=== PATIENT | male | born 1985 | race Two or more races ===

== ENCOUNTER 2020-09-09 17:44 | Emergency (ER) | payer OTHER ==
[2020-09-09 19:00] LABS: BASO % 1.3 % (0-2.0); EOS % 0.6 % (0-4.5); HEMATOCRIT 37.1 % (35.4-49); HEMOGLOBIN 12.7 GM/dL (11.7-16.9); LYMPH % 31.9 % (8-40); MCH 29.1 pg (25.7-33.7); MCHC 34.3 g/dl (32.0-35.9); MEAN CELL VOLUME 84.6 fl (80-96); MEAN PLT VOLUME 8.2 fl (7.5-11.1); MONO % 7.1 % (3.8-10.2); NEUT % 59.1 % (42.8-82.8); PLATELET COUNT 313 K/MM3 (134-434); RBC 4.38 M/mm3 (4.00-5.60); RDW 16.4 % (11.9-15.9); WHITE BLOOD COUNT 9.2 K/mm3 (4.0-10.0)
[2020-09-09 19:17] LABS: INR 0.92 (0.83-1.09); PROTHROMBIN TIME (PATIENT) 11.2 SEC (9.7-13.0)
[2020-09-09 19:19] LABS: ACTIVATED PTT 32.8 SECONDS (25.2-36.5)
[2020-09-09 19:24] LABS: CHLORIDE 95 mmol/L (98-107); SODIUM 131 mmol/L (136-145)
[2020-09-09 19:25] LABS: ALBUMIN 3.5 g/dl (3.4-5.0); ANION GAP 9 MMOL/L (8-16); BLOOD UREA NITROGEN 16.9 mg/dL (7-18); CALCIUM 9.2 mg/dL (8.5-10.1); CO2 27 mmol/L (21-32); GLUCOSE,RANDOM 244 mg/dL (74-106)
[2020-09-09 19:28] LABS: SGOT/AST 22 U/L (15-37); SGPT/ALT 14 U/L (13-61)
[2020-09-09 19:30] LABS: BILIRUBIN,TOTAL 0.3 mg/dL (0.2-1); TOT PROT 7.4 g/dl (6.4-8.2)
[2020-09-09 19:32] LABS: ALK PHOS 89 U/L (45-117)
[2020-09-09] MEDS ORDERED: NITROGLYCERIN SUBLINGUAL 1/150 0.4 MG TAB SL ONE (19:59)
[2020-09-09] MEDS ORDERED: ASPIRIN 81 MG CHEWABLE TABLETS PO ONE (19:59)
[2020-09-09] MEDS ORDERED: ACETAMINOPHEN 325 MG TABLET (FP) PO ONE (20:00)
[2020-09-09] MEDS ORDERED: ASPIRIN COATED 81 MG TABLET.EC ONE (20:19)
[2020-09-09] MEDS ORDERED: ACETAMINOPHEN 325 MG TABLET (FP) ONE (20:20)
[2020-09-09] MEDS ORDERED: NITROGLYCERIN SUBLINGUAL 1/150 0.4 MG TAB ONE (20:20)
[2020-09-10] MEDS ORDERED: INSULIN (NOVOLOG MIX 70/30) 100 UNITS/ML MDV SQ SCH (07:00)
[2020-09-10] MEDS: LEVOTHYROXINE NA 88 MCG TABLET (FP) PO SCH (07:10)
[2020-09-10 07:31] LABS: HEMATOCRIT 37.9 % (35.4-49); MCHC 34.3 g/dl (32.0-35.9); MEAN CELL VOLUME 84.5 fl (80-96); PLATELET COUNT 291 K/MM3 (134-434); RBC 4.48 M/mm3 (4.00-5.60); RDW 16.1 % (11.9-15.9); WHITE BLOOD COUNT 7.5 K/mm3 (4.0-10.0)
[2020-09-10 07:45] LABS: CHLORIDE 99 mmol/L (98-107); SODIUM 135 mmol/L (136-145)
[2020-09-10 07:50] LABS: ANION GAP 7 MMOL/L (8-16); BLOOD UREA NITROGEN 19.8 mg/dL (7-18); CALCIUM 9.1 mg/dL (8.5-10.1); CO2 30 mmol/L (21-32); GLUCOSE,RANDOM 258 mg/dL (74-106)
[2020-09-10 07:54] LABS: PHOSPHOROUS 4.6 mg/dL (2.5-4.9)
[2020-09-10] MEDS ORDERED: INSULIN (LEVEMIR) 100 UNITS/ML UNITS SQ SCH ×2 (10:00→22:00)
[2020-09-10] MEDS ORDERED: DIVALPROEX SODIUM 500 MG TABLET E.C. PO SCH ×2 (10:00→22:00)
[2020-09-10] MEDS: ENOXAPARIN NA (PORCINE) 40 MG/0.4 ML DISP.SYRIN SQ SCH (10:15)
[2020-09-10] MEDS ORDERED: ASPIRIN 81 MG CHEWABLE TABLETS ONE (10:17)
[2020-09-10] MEDS ORDERED: LISINOPRIL 5 MG TABLET ONE (10:18)
[2020-09-10] MEDS ORDERED: ENOXAPARIN NA (PORCINE) 40 MG/0.4 ML DISP.SYRIN SQ ONE (10:18)
[2020-09-10] MEDS ORDERED: metoPROLOL SUCCINATE 25 MG TAB.SR.24H (FP) ONE (10:19)
[2020-09-10] MEDS: metoPROLOL SUCCINATE 25 MG TAB.SR.24H (FP) PO SCH (10:20)
[2020-09-10] MEDS: ASPIRIN COATED 81 MG TABLET.EC PO SCH (10:20)
[2020-09-10] MEDS: LISINOPRIL 5 MG TABLET PO SCH (10:20)
[2020-09-10] MEDS ORDERED: DIVALPROEX SODIUM 500 MG TABLET E.C. ONE (10:32)
[2020-09-10] MEDS ORDERED: SERTRALINE HCL 50 MG TABLET (FP) PO SCH (11:00)
[2020-09-10] MEDS: INSULIN SLIDING SCALE (NOVOLOG) 1 VIAL SQ SCH ×2 (11:18→17:47)
[2020-09-10] MEDS: GEMFIBROZIL 600 MG TABLET (FP) PO SCH (17:20)
[2020-09-10] MEDS ORDERED: ATORVASTATIN CA 40 MG TABLET (FP) PO SCH (22:00)
[2020-09-10] MEDS ORDERED: DESMOPRESSIN ACETATE 0.2 MG TABLET PO SCH (22:00)
[2020-09-10] MEDS ORDERED: cloNIDine HCL 0.1 MG TABLET PO SCH (22:00)
[2020-09-10] MEDS ORDERED: risperiDONE 1 MG TABLET PO SCH (22:00)
[2020-09-10] MEDS ORDERED: LURASIDONE HCL 120 MG PO SCH (22:00)
[2020-09-10] MEDS ORDERED: risperiDONE 2 MG TABLET PO SCH (22:00)
[2020-09-10] MEDS ORDERED: ATORVASTATIN CA 40 MG TABLET (FP) ONE (22:28)
[2020-09-10] MEDS ORDERED: cloNIDine HCL 0.1 MG TABLET ONE (22:28)
[2020-09-11 00:46] VITALS: BMI 32.4
[2020-09-11] MEDS: INSULIN SLIDING SCALE (NOVOLOG) 1 VIAL SQ SCH ×3 (06:53→17:53)
[2020-09-11] MEDS: GEMFIBROZIL 600 MG TABLET (FP) PO SCH ×2 (06:54→17:53)
[2020-09-11] MEDS: LEVOTHYROXINE NA 88 MCG TABLET (FP) PO SCH (06:54)
[2020-09-11] MEDS ORDERED: INSULIN (LEVEMIR) 100 UNITS/ML UNITS SQ SCH (07:00)
[2020-09-11 07:49] LABS: CHOLESTEROL 148 mg/dL (50-200); TRIGLYCERIDES 412 mg/dL (0-150)
[2020-09-11 07:50] LABS: LDL CHOLESTEROL (ONLY SJRH) 76 mg/dL (5-100)
[2020-09-11 07:52] LABS: HDL CHOLESTEROL 25 mg/dL (40-60)
[2020-09-11] MEDS ORDERED: PT OWN MED DRAWER 7, Y5N ONE ×2 (09:52→17:48)
[2020-09-11] MEDS: LISINOPRIL 5 MG TABLET PO SCH (09:54)
[2020-09-11] MEDS ORDERED: DIVALPROEX SODIUM 500 MG TABLET E.C. PO SCH (10:00)
[2020-09-11] MEDS ORDERED: PATIENT'S OWN MEDICATION (NON-FORMULARY) (Mirabegron [Myrbetriq] 25 MG Tab.Er.24h) PO SCH (10:00)
[2020-09-11 12:03] VITALS: PULSE 96
[2020-09-11] MEDS ORDERED: PATIENT'S OWN MEDICATION (NON-FORMULARY) (Sertraline Hcl [Sertraline Hcl] 100 MG Tablet) PO SCH (13:00)
[2020-09-11] MEDS ORDERED: SERTRALINE HCL 200 MG PO SCH (13:03)
[2020-09-11] MEDS: ASPIRIN COATED 81 MG TABLET.EC PO SCH (14:14)
[2020-09-11] MEDS: ENOXAPARIN NA (PORCINE) 40 MG/0.4 ML DISP.SYRIN SQ SCH (14:14)
[2020-09-11] MEDS: metoPROLOL SUCCINATE 25 MG TAB.SR.24H (FP) PO SCH (14:14)
[2020-09-11 15:08] VITALS: BP 113/69; TEMP 98.2
== END 2020-09-11 19:51 ==
LOC: JER 17:44 → JERBED 20:04 → J4W 09-11 00:04
PROVIDERS: ADMIT Internal Medicine; ATTEND Internal Medicine
PROC: 3E023GC Introduction of Other Therapeutic Substance into Muscle, Percutaneous Approach (ICD-10-PCS; principal; 2020-09-10)
PROC: 3E033GC Introduction of Other Therapeutic Substance into Peripheral Vein, Percutaneous Approach (ICD-10-PCS; 2020-09-11)
DX: R07.9 Chest pain, unspecified (principal)
CPT/HCPCS: 36415; 71045-TC-FY; 71275-TC; 80048; 80053; 80061; 82550; 82553; 82962; 83036; 83721; 84100; 84484; 85025; 85027; 85379; 85610; 85730; 93005; 93010; 93306-TC; 93351; 96374; 99285-25; C9803; G0378; J0735; J2794; Q9967; U0003

== ENCOUNTER 2020-10-08 21:44 | Emergency (ER) | payer OTHER ==
[2020-10-08 22:01] VITALS: TEMP 98.5; BMI 48.4
[2020-10-08] MEDS ORDERED: FAMOTIDINE 10 MG TABLET PO ONE (22:05)
[2020-10-08] MEDS ORDERED: MAG HYDROX/AL HYDROX/SIMETH -MYLANTA- ORAL SUSPENSION PO ONE (22:05)
[2020-10-08] MEDS ORDERED: ASPIRIN 81 MG CHEWABLE TABLETS PO ONE (22:08)
[2020-10-08] MEDS ORDERED: ASPIRIN 81 MG CHEWABLE TABLETS ONE (22:36)
[2020-10-08] MEDS ORDERED: FAMOTIDINE 10 MG TABLET ONE (22:36)
[2020-10-08] MEDS ORDERED: MAG HYDROX/AL HYDROX/SIMETH 30 ML UNIT-DOSE CUP ONE (22:37)
[2020-10-08 22:59] LABS: BASO % 1.2 % (0-2.0); EOS % 0.9 % (0-4.5); HEMATOCRIT 39.2 % (35.4-49); HEMOGLOBIN 13.9 GM/dL (11.7-16.9); MCH 30.1 pg (25.7-33.7); MCHC 35.5 g/dl (32.0-35.9); MEAN CELL VOLUME 84.9 fl (80-96); NEUT % 58.9 % (42.8-82.8); PLATELET COUNT 279 K/MM3 (134-434); RBC 4.62 M/mm3 (4.00-5.60); RDW 17.5 % (11.9-15.9); WHITE BLOOD COUNT 9.8 K/mm3 (4.0-10.0)
[2020-10-08 23:27] LABS: CHLORIDE 97 mmol/L (98-107); POTASSIUM 4.1 mmol/L (3.5-5.1); SODIUM 134 mmol/L (136-145)
[2020-10-08 23:29] LABS: ANION GAP 12 MMOL/L (8-16); CO2 25 mmol/L (21-32); GLUCOSE,RANDOM 267 mg/dL (74-106)
[2020-10-09 00:19] LABS: BLOOD UREA NITROGEN 27.8 mg/dL (7-18); CALCIUM 8.5 mg/dL (8.5-10.1)
[2020-10-09] MEDS ORDERED: ACETAMINOPHEN 325 MG TABLET (FP) PO ONE (01:21)
[2020-10-09] MEDS ORDERED: ACETAMINOPHEN 325 MG TABLET (FP) ONE (01:26)
[2020-10-09 01:51] VITALS: BP 113/76; PULSE 90
== END 2020-10-09 02:07 | disposition home or self-care (01) ==
LOC: JER 21:44
DX: R07.9 Chest pain, unspecified (principal); E11.69 Type 2 diabetes mellitus with other specified complication; I25.119 Atherosclerotic heart disease of native coronary artery with unspecified angina pectoris
CPT/HCPCS: 36415; 71045-TC-FY; 80048; 82550; 82553; 84484; 85025; 93005; 93010; 99284-25

== ENCOUNTER 2021-02-25 21:55 | Observation (INO) | payer OTHER ==
[2021-02-25] MEDS ORDERED: ASPIRIN 325 MG TABLET PO ONE (22:14)
[2021-02-25] MEDS ORDERED: ASPIRIN 325 MG ENTERIC COATED TABLET (FP) ONE (22:39)
[2021-02-25 22:47] LABS: BASO % 1.3 % (0-2.0); EOS % 0.7 % (0-4.5); HEMATOCRIT 38.7 % (35.4-49); HEMOGLOBIN 13.8 GM/dL (11.7-16.9); LYMPH % 30.9 % (8-40); MCH 29.4 pg (25.7-33.7); MCHC 35.6 g/dl (32.0-35.9); MEAN CELL VOLUME 82.5 fl (80-96); MEAN PLT VOLUME 8.1 fl (7.5-11.1); MONO % 6.7 % (3.8-10.2); NEUT % 60.4 % (42.8-82.8); PLATELET COUNT 240 K/MM3 (134-434); RDW 16.5 % (11.9-15.9); WHITE BLOOD COUNT 9.1 K/mm3 (4.0-10.0)
[2021-02-25 22:54] LABS: INR 0.84 (0.83-1.09); PROTHROMBIN TIME (PATIENT) 10.4 SEC (9.7-13.0)
[2021-02-25 23:08] LABS: CALCIUM 8.8 mg/dL (8.5-10.1)
[2021-02-25 23:09] LABS: ALBUMIN 3.6 g/dl (3.4-5.0)
[2021-02-25 23:13] LABS: BILIRUBIN,TOTAL 0.5 mg/dL (0.2-1)
[2021-02-25 23:21] LABS: TOT PROT 7.2 g/dl (6.4-8.2)
[2021-02-26] MEDS ORDERED: ACETAMINOPHEN 325 MG TABLET (FP) PO PRN (01:04)
[2021-02-26] MEDS ORDERED: SODIUM CHLORIDE 1,000 ML IV SCH (01:15)
[2021-02-26 06:04] LABS: BASO % 1.1 % (0-2.0); HEMATOCRIT 40.6 % (35.4-49); HEMOGLOBIN 13.4 GM/dL (11.7-16.9); LYMPH % 40.5 % (8-40); MCH 27.6 pg (25.7-33.7); MEAN CELL VOLUME 83.5 fl (80-96); MEAN PLT VOLUME 8.1 fl (7.5-11.1); MONO % 5.9 % (3.8-10.2); NEUT % 51.5 % (42.8-82.8); PLATELET COUNT 212 K/MM3 (134-434); RBC 4.86 M/mm3 (4.00-5.60); RDW 16.2 % (11.9-15.9); WHITE BLOOD COUNT 7.6 K/mm3 (4.0-10.0)
[2021-02-26 06:28] LABS: CHLORIDE 99 mmol/L (98-107); SODIUM 135 mmol/L (136-145)
[2021-02-26 06:31] LABS: ALBUMIN 3.6 g/dl (3.4-5.0); ANION GAP 8 MMOL/L (8-16); CO2 27 mmol/L (21-32); GLUCOSE,RANDOM 181 mg/dL (74-106); MAGNESIUM 2.2 mg/dL (1.8-2.4)
[2021-02-26 06:32] LABS: BLOOD UREA NITROGEN 16.7 mg/dL (7-18)
[2021-02-26 06:34] LABS: CHOLESTEROL 166 mg/dL (50-200); CREATININE 0.8 mg/dL (0.55-1.3); SGOT/AST 19 U/L (15-37); SGPT/ALT 19 U/L (13-61)
[2021-02-26 06:35] LABS: LDL CHOLESTEROL (ONLY SJRH) 72 mg/dL (5-100); PHOSPHOROUS 4.5 mg/dL (2.5-4.9); TRIGLYCERIDES 554 mg/dL (0-150)
[2021-02-26 06:36] LABS: BILIRUBIN,TOTAL 0.4 mg/dL (0.2-1); TOT PROT 7.3 g/dl (6.4-8.2)
[2021-02-26 06:37] LABS: ALK PHOS 69 U/L (45-117); HDL CHOLESTEROL 26 mg/dL (40-60)
[2021-02-26] MEDS ORDERED: LISINOPRIL 5 MG TABLET ONE (08:35)
[2021-02-26] MEDS ORDERED: metoPROLOL SUCCINATE 25 MG TAB.SR.24H (FP) ONE (08:35)
[2021-02-26] MEDS ORDERED: ENOXAPARIN NA (PORCINE) 40 MG/0.4 ML DISP.SYRIN SQ ONE (08:36)
[2021-02-26] MEDS: metoPROLOL SUCCINATE 25 MG TAB.SR.24H (FP) PO SCH (09:30)
[2021-02-26] MEDS ORDERED: LISINOPRIL 5 MG TABLET PO SCH (10:00)
[2021-02-26] MEDS: DIVALPROEX NA *ER* EXTEND REL 500 MG TABLET.SA (FP) PO SCH (11:00)
[2021-02-26] MEDS: ENOXAPARIN NA (PORCINE) 40 MG/0.4 ML DISP.SYRIN SQ SCH (11:00)
[2021-02-26] MEDS: LEVOTHYROXINE NA 88 MCG TABLET (FP) PO SCH (11:00)
[2021-02-26] MEDS: INSULIN SLIDING SCALE (NOVOLOG) 1 VIAL SQ SCH ×4 (11:01→22:23)
[2021-02-26] MEDS: SERTRALINE HCL 50 MG TABLET (FP) PO SCH (11:35)
[2021-02-26 16:05] VITALS: BMI 47.0
[2021-02-26] MEDS ORDERED: INSULIN (NOVOLOG) ASPART 100 UNITS/ML 10ML VIAL ONE (17:10)
[2021-02-26] MEDS ORDERED: PT OWN MED DRAWER 7, Y5N ONE (21:11)
[2021-02-26] MEDS ORDERED: ATORVASTATIN CA 40 MG TABLET (FP) PO SCH (22:00)
[2021-02-26] MEDS ORDERED: DIVALPROEX NA *ER* EXTEND REL 500 MG TABLET.SA (FP) PO SCH (22:00)
[2021-02-27] MEDS: INSULIN SLIDING SCALE (NOVOLOG) 1 VIAL SQ SCH (06:26)
[2021-02-27] MEDS: LEVOTHYROXINE NA 88 MCG TABLET (FP) PO SCH (06:33)
[2021-02-27 08:12] LABS: HEMATOCRIT 41.8 % (35.4-49); HEMOGLOBIN 13.9 GM/dL (11.7-16.9); MCH 27.8 pg (25.7-33.7); MCHC 33.2 g/dl (32.0-35.9); MEAN CELL VOLUME 83.9 fl (80-96); MEAN PLT VOLUME 8.5 fl (7.5-11.1); PLATELET COUNT 225 10^3/uL (134-434); RBC 4.99 M/mm3 (4.00-5.60); RDW 16.8 % (11.9-15.9); WHITE BLOOD COUNT 7.3 K/mm3 (4.0-10.0)
[2021-02-27 08:32] LABS: BLOOD UREA NITROGEN 18.1 mg/dL (7-18); CALCIUM 9.4 mg/dL (8.5-10.1)
[2021-02-27 08:33] LABS: ALBUMIN 3.6 g/dl (3.4-5.0)
[2021-02-27 08:35] LABS: CREATININE 0.7 mg/dL (0.55-1.3)
[2021-02-27 08:36] LABS: BILIRUBIN,TOTAL 0.5 mg/dL (0.2-1)
[2021-02-27 08:37] LABS: TOT PROT 7.4 g/dl (6.4-8.2)
[2021-02-27] MEDS ORDERED: PT OWN MED DRAWER 7, Y5N ONE (09:13)
[2021-02-27] MEDS: metoPROLOL SUCCINATE 25 MG TAB.SR.24H (FP) PO SCH (09:27)
[2021-02-27] MEDS: ENOXAPARIN NA (PORCINE) 40 MG/0.4 ML DISP.SYRIN SQ SCH ×2 (09:27→09:37)
[2021-02-27] MEDS: SERTRALINE HCL 50 MG TABLET (FP) PO SCH (09:27)
[2021-02-27] MEDS: DIVALPROEX NA *ER* EXTEND REL 500 MG TABLET.SA (FP) PO SCH (09:30)
[2021-02-27 11:30] VITALS: BP 125/53; PULSE 98; TEMP 98.1
== END 2021-02-27 11:31 | disposition home or self-care (01) ==
LOC: JER 21:55 → JERBED 23:35 → OBSVTOIN 23:35 → INTOOBSV 23:35 → UNDOADMOB 23:35 → JERBED 02-26 09:47 → J4W 02-26 15:36
PROVIDERS: ADMIT Hospitalist; ATTEND Internal Medicine
PROC: 3E013VG Introduction of Insulin into Subcutaneous Tissue, Percutaneous Approach (ICD-10-PCS; principal; 2021-02-26)
PROC: 3E0337Z Introduction of Electrolytic and Water Balance Substance into Peripheral Vein, Percutaneous Approach (ICD-10-PCS; 2021-02-26)
DX: I25.10 Atherosclerotic heart disease of native coronary artery without angina pectoris (principal); F63.81 Intermittent explosive disorder; F79 Unspecified intellectual disabilities; E86.0 Dehydration; E11.9 Type 2 diabetes mellitus without complications; Z95.5 Presence of coronary angioplasty implant and graft; I10 Essential (primary) hypertension; I25.2 Old myocardial infarction; Z87.891 Personal history of nicotine dependence; E66.01 Morbid (severe) obesity due to excess calories; Z68.42 Body mass index [BMI] 45.0-49.9, adult; E87.1 Hypo-osmolality and hyponatremia; R07.89 Other chest pain; R55 Syncope and collapse
CPT/HCPCS: 36415; 71045-TC-FY; 80053; 80061; 82550; 82553; 82962; 83036; 83721; 83735; 84100; 84484; 85025; 85027; 85610; 85730; 93005; 93010; 93306-TC; 96360; 96372; 99285-25; C9803; G0378; U0003; U0005

== ENCOUNTER 2021-04-30 18:21 | Emergency (ER) | payer OTHER ==
[2021-04-30 18:51] VITALS: BP 118/63; TEMP 97.6; BMI 45.3
[2021-04-30 20:16] VITALS: PULSE 86
== END 2021-04-30 20:22 | disposition home or self-care (01) ==
LOC: JERFT 18:21
DX: S63.616A Unspecified sprain of right little finger, initial encounter (principal); R21 Rash and other nonspecific skin eruption; W23.1XXA Caught, crushed, jammed, or pinched between stationary objects, initial encounter
CPT/HCPCS: 73130-TC-RT-FY; 99283-25

== ENCOUNTER 2021-06-02 20:28 | Emergency (ER) | payer OTHER ==
[2021-06-02 20:35] VITALS: BP 122/77; BMI 41.9
[2021-06-02] MEDS ORDERED: LACTATED RINGERS SOLUTION 1000 ML INFUS.BAG IV ONE (21:23)
[2021-06-02] MEDS ORDERED: ONDANSETRON 4 MG/2 ML VIAL IVPUSH ONE (21:23)
[2021-06-02] MEDS ORDERED: ACETAMINOPHEN 1000 MG/100 ML VIAL (NON FORMULARY) IVPB ONE (21:23)
[2021-06-02] MEDS ORDERED: ONDANSETRON 4 MG/2 ML VIAL ONE (21:43)
[2021-06-02] MEDS ORDERED: ACETAMINOPHEN INJECTION 100 ML IVPB ONE (21:43)
[2021-06-02 21:46] LABS: BASO % 1.5 % (0-2.0); EOS % 0.7 % (0-4.5); HEMATOCRIT 38.7 % (35.4-49); HEMOGLOBIN 13.8 GM/dL (11.7-16.9); LYMPH % 34.2 % (8-40); MCH 28.8 pg (25.7-33.7); MCHC 35.6 g/dl (32.0-35.9); MEAN CELL VOLUME 80.9 fl (80-96); NEUT % 56.6 % (42.8-82.8); PLATELET COUNT 247 10^3/uL (134-434); RBC 4.78 M/mm3 (4.00-5.60); RDW 16.8 % (11.9-15.9); WHITE BLOOD COUNT 10.4 K/mm3 (4.0-10.0)
[2021-06-02 21:56] LABS: INR 0.87 (0.83-1.09); PROTHROMBIN TIME (PATIENT) 10.7 SEC (9.7-13.0)
[2021-06-02 21:58] LABS: ACTIVATED PTT 29.1 SECONDS (25.2-36.5)
[2021-06-02] MEDS ORDERED: LIDOCAINE PATCH REMOVAL MC SCH (22:00)
[2021-06-02 22:08] LABS: CHLORIDE 98 mmol/L (98-107); SODIUM 134 mmol/L (136-145)
[2021-06-02 22:12] LABS: ALBUMIN 3.5 g/dl (3.4-5.0); ANION GAP 11 MMOL/L (8-16); BLOOD UREA NITROGEN 21.2 mg/dL (7-18); CALCIUM 8.5 mg/dL (8.5-10.1); CO2 25 mmol/L (21-32); GLUCOSE,RANDOM 257 mg/dL (74-106)
[2021-06-02 22:15] LABS: CREATININE 1.2 mg/dL (0.55-1.3); SGOT/AST 19 U/L (15-37)
[2021-06-02 22:16] LABS: BILIRUBIN,TOTAL 0.4 mg/dL (0.2-1)
[2021-06-02 22:18] LABS: ALK PHOS 87 U/L (45-117)
[2021-06-02] MEDS ORDERED: LIDOCAINE 5% TOPICAL PATCH TP ONE (22:33)
[2021-06-02] MEDS ORDERED: KETOROLAC TROMETHAMINE 15 MG/ML VIAL IVPUSH ONE (22:34)
[2021-06-02 22:39] LABS: SGPT/ALT 27 U/L (13-61); TOT PROT 7.5 g/dl (6.4-8.2)
[2021-06-02] MEDS ORDERED: LIDOCAINE 5% TOPICAL PATCH ONE (22:47)
[2021-06-02] MEDS ORDERED: KETOROLAC TROMETHAMINE 15 MG/ML VIAL ONE (22:48)
[2021-06-02] MEDS ORDERED: CYCLOBENZAPRINE HCL 10 MG TABLET (FP) PO ONE (23:00)
[2021-06-02] MEDS ORDERED: CYCLOBENZAPRINE HCL 10 MG TABLET (FP) ONE (23:23)
[2021-06-03 00:46] VITALS: PULSE 69; TEMP 98.6
[2021-06-03] MEDS ORDERED: CYCLOBENZAPRINE HCL 5 MG TABLET PO ONE (01:04)
[2021-06-03] MEDS ORDERED: CYCLOBENZAPRINE HCL 10 MG TABLET (FP) ONE (01:10)
== END 2021-06-03 02:01 | disposition home or self-care (01) ==
LOC: JER 20:28
PROC: 3E0333Z Introduction of Anti-inflammatory into Peripheral Vein, Percutaneous Approach (ICD-10-PCS; principal; 2021-06-02)
PROC: 3E033NZ Introduction of Analgesics, Hypnotics, Sedatives into Peripheral Vein, Percutaneous Approach (ICD-10-PCS; 2021-06-02)
DX: S16.1XXA Strain of muscle, fascia and tendon at neck level, initial encounter (principal); W19.XXXA Unspecified fall, initial encounter; Y92.9 Unspecified place or not applicable
CPT/HCPCS: 36415; 70450-TC; 71046-TC-FY; 72125-TC; 80053; 80164; 82010; 82550; 82553; 82962; 84484; 85025; 85610; 85730; 93005; 93010; 96374; 96375; 99285-25; C9803; J0131; U0003; U0005

== ENCOUNTER 2021-06-04 15:21 | Emergency (ER) | payer OTHER ==
[2021-06-04 15:25] VITALS: BP 111/58; PULSE 110; TEMP 99; BMI 45.1
== END 2021-06-04 16:46 | disposition home or self-care (01) ==
LOC: JERFT 15:21 → JER 15:21 → JERFT 16:46
DX: S13.9XXA Sprain of joints and ligaments of unspecified parts of neck, initial encounter (principal); W01.0XXA Fall on same level from slipping, tripping and stumbling without subsequent striking against object, initial encounter
CPT/HCPCS: 99281-25

== ENCOUNTER 2022-02-25 13:29 | Observation (INO) | payer OTHER ==
[2022-02-25 14:04] VITALS: BMI 45.8
[2022-02-25] MEDS ORDERED: SODIUM CHLORIDE 1,000 ML IV SCH (14:30)
[2022-02-25 15:27] LABS: BASO % 0.5 % (0-2.0); EOS % 0.7 % (0-4.5); HEMATOCRIT 45.1 % (35.4-49); HEMOGLOBIN 14.8 GM/dL (11.7-16.9); LYMPH % 34.4 % (8-40); MCH 27.3 pg (25.7-33.7); MCHC 32.9 g/dl (32.0-35.9); MEAN CELL VOLUME 83.1 fl (80-96); MEAN PLT VOLUME 8.3 fl (7.5-11.1); MONO % 6.3 % (3.8-10.2); NEUT % 58.1 % (42.8-82.8); PLATELET COUNT 263 10^3/uL (134-434); RBC 5.42 M/mm3 (4.00-5.60); RDW 15.7 % (11.9-15.9); WHITE BLOOD COUNT 7.9 K/mm3 (4.0-10.0)
[2022-02-25] MEDS ORDERED: ASPIRIN 81 MG CHEWABLE TABLETS PO ONE (15:27)
[2022-02-25] MEDS ORDERED: ASPIRIN 81 MG CHEWABLE TABLETS ONE (15:33)
[2022-02-25 15:38] LABS: INR 0.97 (0.83-1.09); PROTHROMBIN TIME (PATIENT) 11.1 SEC (9.7-13.0); VENOUS BASE EXCESS -2.1 mmol/L (-2-2); VENOUS O2 SATURATION 79.9 % (70-80); VENOUS PH 7.266 (7.310-7.410)
[2022-02-25 15:41] LABS: ACTIVATED PTT 34.7 SECONDS (25.2-36.5)
[2022-02-25] MEDS ORDERED: LORazepam 2 MG/ML SDV VIAL IVPB ONE (15:59)
[2022-02-25 16:10] LABS: CALCIUM 9.5 mg/dL (8.5-10.1)
[2022-02-25 16:16] LABS: TOT PROT 7.8 g/dl (6.4-8.2)
[2022-02-25 16:17] LABS: BILIRUBIN,TOTAL 0.4 mg/dL (0.2-1)
[2022-02-25 17:06] LABS: URINE APPEARANCE CLEAR; URINE BILIRUBIN NEGATIVE (NEGATIVE); URINE COLOR YELLOW; URINE GLUCOSE (UA) 3+ (NEGATIVE); URINE KETONE NEGATIVE (NEGATIVE); URINE LEUK ESTERASE NEGATIVE (NEGATIVE); URINE NITRITE NEGATIVE (NEGATIVE); URINE PROTEIN NEGATIVE (NEGATIVE); URINE UROBILINOGEN 0.2 mg/dL (0.2-1.0)
[2022-02-25] MEDS ORDERED: DEXTROSE 50%-WATER - 25 GM/50 ML VIAL IVPUSH PRN (18:55)
[2022-02-25] MEDS ORDERED: DIVALPROEX SODIUM 500 MG TABLET E.C. ONE (20:53)
[2022-02-25] MEDS ORDERED: ATORVASTATIN CA 40 MG TABLET (FP) ONE (20:53)
[2022-02-25] MEDS ORDERED: cloNIDine HCL 0.1 MG TABLET ONE (20:53)
[2022-02-25] MEDS: INSULIN (LEVEMIR) 100 UNITS/ML UNITS SQ SCH (21:35)
[2022-02-25] MEDS: cloNIDine HCL 0.1 MG TABLET PO SCH (21:35)
[2022-02-25] MEDS: DIVALPROEX NA *ER* EXTEND REL 500 MG TABLET.SA (FP) PO SCH (21:35)
[2022-02-25] MEDS: ATORVASTATIN CA 40 MG TABLET (FP) PO SCH (21:36)
[2022-02-25] MEDS: INSULIN SLIDING SCALE (NOVOLOG) 1 VIAL SQ SCH (21:40)
[2022-02-25] MEDS: DESMOPRESSIN ACETATE 0.2 MG TABLET PO SCH (22:17)
[2022-02-26] MEDS ORDERED: ACETAMINOPHEN 1000 MG/100 ML BAG IVPB ONE ×2 (05:28→17:30)
[2022-02-26] MEDS ORDERED: ACETAMINOPHEN INJECTION 100 ML IVPB ONE (05:42)
[2022-02-26] MEDS ORDERED: DIVALPROEX SODIUM 500 MG TABLET E.C. ONE (08:16)
[2022-02-26] MEDS ORDERED: LISINOPRIL 5 MG TABLET ONE (08:17)
[2022-02-26] MEDS ORDERED: metoPROLOL SUCCINATE 25 MG TAB.SR.24H (FP) PO ONE (08:17)
[2022-02-26] MEDS: INSULIN SLIDING SCALE (NOVOLOG) 1 VIAL SQ SCH ×4 (08:50→21:36)
[2022-02-26] MEDS: LEVOTHYROXINE NA 88 MCG TABLET (FP) PO SCH (08:50)
[2022-02-26] MEDS ORDERED: DIVALPROEX NA *ER* EXTEND REL 500 MG TABLET.SA (FP) PO SCH (10:00)
[2022-02-26] MEDS ORDERED: LISINOPRIL 5 MG TABLET PO SCH (10:00)
[2022-02-26] MEDS: INSULIN (LEVEMIR) 100 UNITS/ML UNITS SQ SCH ×2 (10:32→22:23)
[2022-02-26] MEDS: metoPROLOL SUCCINATE 25 MG TAB.SR.24H (FP) PO SCH (10:32)
[2022-02-26] MEDS: cloNIDine HCL 0.1 MG TABLET PO SCH (21:30)
[2022-02-26] MEDS: DESMOPRESSIN ACETATE 0.2 MG TABLET PO SCH (21:31)
[2022-02-26] MEDS: ATORVASTATIN CA 40 MG TABLET (FP) PO SCH (21:32)
[2022-02-26] MEDS: DIVALPROEX NA *ER* EXTEND REL 500 MG TABLET.SA (FP) PO SCH (21:32)
[2022-02-26] MEDS ORDERED: ACETAMINOPHEN 500 MG TABLET (FP) PO PRN (22:36)
[2022-02-26] MEDS ORDERED: IBUPROFEN 600 MG TABLET (FP) PO PRN (23:30)
[2022-02-27] MEDS: INSULIN SLIDING SCALE (NOVOLOG) 1 VIAL SQ SCH ×4 (06:17→21:50)
[2022-02-27] MEDS: LEVOTHYROXINE NA 88 MCG TABLET (FP) PO SCH (06:27)
[2022-02-27 08:28] LABS: BASO % 0.6 % (0-2.0); EOS % 1.1 % (0-4.5); HEMATOCRIT 44.4 % (35.4-49); HEMOGLOBIN 14.8 GM/dL (11.7-16.9); LYMPH % 36.8 % (8-40); MCHC 33.4 g/dl (32.0-35.9); MEAN CELL VOLUME 83.6 fl (80-96); MEAN PLT VOLUME 8.4 fl (7.5-11.1); MONO % 7.3 % (3.8-10.2); NEUT % 54.2 % (42.8-82.8); PLATELET COUNT 240 10^3/uL (134-434); RBC 5.31 M/mm3 (4.00-5.60); RDW 15.5 % (11.9-15.9); WHITE BLOOD COUNT 7.9 K/mm3 (4.0-10.0)
[2022-02-27 08:48] LABS: ALBUMIN 3.9 g/dl (3.4-5.0); BLOOD UREA NITROGEN 24.8 mg/dL (7-18); CALCIUM 9.4 mg/dL (8.5-10.1); MAGNESIUM 2.4 mg/dL (1.8-2.4)
[2022-02-27 08:51] LABS: CREATININE 1.1 mg/dL (0.55-1.3); PHOSPHOROUS 3.8 mg/dL (2.5-4.9)
[2022-02-27 08:52] LABS: BILIRUBIN,TOTAL 0.4 mg/dL (0.2-1)
[2022-02-27 08:53] LABS: TOT PROT 7.9 g/dl (6.4-8.2)
[2022-02-27] MEDS: metoPROLOL SUCCINATE 25 MG TAB.SR.24H (FP) PO SCH (09:02)
[2022-02-27] MEDS: AMOX TR/POT CLAV 875MG/125MG TABLETS (FP) PO SCH ×3 (09:02→16:35)
[2022-02-27] MEDS: INSULIN (LEVEMIR) 100 UNITS/ML UNITS SQ SCH ×2 (12:18→21:50)
[2022-02-27] MEDS ORDERED: MECLIZINE HCL 25 MG TABLET (FP) PO ONE ×2 (13:31→15:45)
[2022-02-27] MEDS ORDERED: SODIUM CHLORIDE 0.9% 500 ML INFUS.BAG IV ONE (13:32)
[2022-02-27] MEDS: risperiDONE 1 MG TABLET PO SCH (21:47)
[2022-02-27] MEDS: DESMOPRESSIN ACETATE 0.2 MG TABLET PO SCH (21:47)
[2022-02-27] MEDS: ATORVASTATIN CA 40 MG TABLET (FP) PO SCH (21:47)
[2022-02-28] MEDS: LEVOTHYROXINE NA 88 MCG TABLET (FP) PO SCH (06:05)
[2022-02-28] MEDS: INSULIN SLIDING SCALE (NOVOLOG) 1 VIAL SQ SCH ×4 (06:05→21:11)
[2022-02-28] MEDS: AMOX TR/POT CLAV 875MG/125MG TABLETS (FP) PO SCH ×2 (09:52→17:47)
[2022-02-28] MEDS: metoPROLOL SUCCINATE 25 MG TAB.SR.24H (FP) PO SCH (10:29)
[2022-02-28] MEDS: INSULIN (LEVEMIR) 100 UNITS/ML UNITS SQ SCH ×2 (10:29→21:10)
[2022-02-28] MEDS ORDERED: SODIUM CHLORIDE 500 ML IV STA (14:40)
[2022-02-28] MEDS ORDERED: LACTATED RINGERS SOLUTION 1000 ML INFUS.BAG IV ONE (18:00)
[2022-02-28] MEDS: DESMOPRESSIN ACETATE 0.2 MG TABLET PO SCH (21:09)
[2022-02-28] MEDS: risperiDONE 1 MG TABLET PO SCH (21:09)
[2022-02-28] MEDS: ATORVASTATIN CA 40 MG TABLET (FP) PO SCH (21:14)
[2022-03-01] MEDS: INSULIN SLIDING SCALE (NOVOLOG) 1 VIAL SQ SCH ×2 (06:25→11:45)
[2022-03-01] MEDS: LEVOTHYROXINE NA 88 MCG TABLET (FP) PO SCH (06:25)
[2022-03-01] MEDS: AMOX TR/POT CLAV 875MG/125MG TABLETS (FP) PO SCH (08:36)
[2022-03-01 09:14] VITALS: BP 115/74; PULSE 105; TEMP 98.2
[2022-03-01] MEDS: metoPROLOL SUCCINATE 25 MG TAB.SR.24H (FP) PO SCH (10:23)
[2022-03-01] MEDS: INSULIN (LEVEMIR) 100 UNITS/ML UNITS SQ SCH (10:24)
== END 2022-03-01 12:40 | disposition home or self-care (01) ==
LOC: JER 13:29 → JERBED 15:37 → INTOOBSV 15:37 → UNDOADMOB 15:37 → JERBED 02-26 14:10 → J4W 02-26 15:10
PROVIDERS: ADMIT Internal Medicine
PROC: 3E033NZ Introduction of Analgesics, Hypnotics, Sedatives into Peripheral Vein, Percutaneous Approach (ICD-10-PCS; principal; 2022-02-26)
PROC: 3E013VG Introduction of Insulin into Subcutaneous Tissue, Percutaneous Approach (ICD-10-PCS; 2022-02-26)
PROC: 3E0337Z Introduction of Electrolytic and Water Balance Substance into Peripheral Vein, Percutaneous Approach (ICD-10-PCS; 2022-02-26)
PROC: 3E033NZ Introduction of Analgesics, Hypnotics, Sedatives into Peripheral Vein, Percutaneous Approach (ICD-10-PCS; 2022-02-26)
DX: R25.1 Tremor, unspecified (principal); E11.9 Type 2 diabetes mellitus without complications; I10 Essential (primary) hypertension; E78.5 Hyperlipidemia, unspecified; E66.01 Morbid (severe) obesity due to excess calories; Z68.42 Body mass index [BMI] 45.0-49.9, adult; E03.9 Hypothyroidism, unspecified; Z95.5 Presence of coronary angioplasty implant and graft; I25.2 Old myocardial infarction; F91.9 Conduct disorder, unspecified; E78.00 Pure hypercholesterolemia, unspecified; Z79.4 Long term (current) use of insulin
CPT/HCPCS: 36415; 70450-TC; 70496-TC; 70498-TC; 70551-TC; 71045-TC-FY; 80053; 80061; 81003; 82010; 82550; 82553; 82803; 82962; 83036; 83735; 84100; 84443; 84484; 85025; 85610; 85730; 86850; 86900; 86901; 93005; 93010; 93880-TC; 96361; 96372; 96374; 96375; 96376; 97116-GP; 97162-GP; 99285-25; C9803-CS; G0378; J0735; J2794; Q9967; U0003; U0005

== ENCOUNTER 2022-05-25 18:05 | Emergency (ER) | payer OTHER ==
[2022-05-25 18:09] VITALS: BP 123/83; PULSE 107; RESP 18; TEMP 97.8; BMI 45.1
[2022-05-25] MEDS ORDERED: ONDANSETRON 4 MG/2 ML VIAL IVPUSH ONE (18:51)
[2022-05-25] MEDS ORDERED: SODIUM CHLORIDE 0.9% 500 ML INFUS.BAG IV ONE (18:51)
[2022-05-25] MEDS ORDERED: ACETAMINOPHEN 1000 MG/100 ML BAG IVPB ONE (18:51)
[2022-05-25 19:27] LABS: VENOUS BASE EXCESS 0.9 mmol/L (-2-2); VENOUS O2 SATURATION 89.6 % (70-80); VENOUS PCO2 40.7 mmHg (38-52); VENOUS PH 7.415 (7.310-7.410)
[2022-05-25] MEDS ORDERED: ACETAMINOPHEN INJECTION 100 ML IVPB ONE (19:36)
[2022-05-25] MEDS ORDERED: ONDANSETRON 4 MG/2 ML VIAL ONE (19:36)
[2022-05-25 19:42] LABS: BASO % 0.6 % (0-2.0); EOS % 0.9 % (0-4.5); HEMATOCRIT 40.9 % (35.4-49); LYMPH % 32.9 % (8-40); MCH 28.7 pg (25.7-33.7); MCHC 34.3 g/dl (32.0-35.9); MEAN CELL VOLUME 83.8 fl (80-96); MEAN PLT VOLUME 8.2 fl (7.5-11.1); MONO % 6.5 % (3.8-10.2); NEUT % 59.1 % (42.8-82.8); PLATELET COUNT 218 10^3/uL (134-434); RBC 4.89 M/mm3 (4.00-5.60); RDW 15.2 % (11.9-15.9); WHITE BLOOD COUNT 7.7 K/mm3 (4.0-10.0)
[2022-05-25 19:47] LABS: ALBUMIN 3.7 g/dl (3.4-5.0); BLOOD UREA NITROGEN 17.6 mg/dL (7-18); CALCIUM 9.2 mg/dL (8.5-10.1); MAGNESIUM 2.1 mg/dL (1.8-2.4)
[2022-05-25 20:08] LABS: BILIRUBIN,TOTAL 0.4 mg/dL (0.2-1); CREATININE 1.1 mg/dL (0.55-1.3); PHOSPHOROUS 3.4 mg/dL (2.5-4.9); TOT PROT 7.3 g/dl (6.4-8.2)
[2022-05-25 20:10] LABS: PH,URINE 6.5 (5.0-8.0); URINE APPEARANCE CLEAR; URINE BILIRUBIN NEGATIVE (NEGATIVE); URINE COLOR YELLOW; URINE GLUCOSE (UA) 3+ (NEGATIVE); URINE KETONE NEGATIVE (NEGATIVE); URINE LEUK ESTERASE NEGATIVE (NEGATIVE); URINE NITRITE NEGATIVE (NEGATIVE); URINE PROTEIN NEGATIVE (NEGATIVE); URINE UROBILINOGEN 0.2 mg/dL (0.2-1.0)
[2022-05-25 20:15] LABS: ACTIVATED PTT 31.3 SECONDS (25.2-36.5); INR 0.93 (0.83-1.09); PROTHROMBIN TIME (PATIENT) 10.7 SEC (9.7-13.0)
[2022-05-25] MEDS ORDERED: KETOROLAC TROMETHAMINE 15 MG/ML VIAL IVPUSH ONE (20:17)
[2022-05-25] MEDS ORDERED: KETOROLAC TROMETHAMINE 15 MG/ML VIAL ONE (20:42)
== END 2022-05-25 21:37 | disposition home or self-care (01) ==
LOC: JER 18:05
PROC: 3E0333Z Introduction of Anti-inflammatory into Peripheral Vein, Percutaneous Approach (ICD-10-PCS; principal; 2022-05-25)
PROC: 3E033GC Introduction of Other Therapeutic Substance into Peripheral Vein, Percutaneous Approach (ICD-10-PCS; 2022-05-25)
DX: M25.522 Pain in left elbow (principal)
CPT/HCPCS: 36415; 71046-TC-FY; 73070-TC-LT-FY; 80053; 81003; 82010; 82803; 82962; 83735; 84100; 84439; 84443; 84484; 85025; 85610; 85730; 87086; 93005; 93010; 99285-25; C9803-CS; U0003; U0005

== ENCOUNTER 2022-08-14 18:59 | Observation (INO) | payer OTHER ==
[2022-08-14 19:21] VITALS: BMI 48.0
[2022-08-14 20:52] LABS: HEMATOCRIT 41.7 % (35.4-49); HEMOGLOBIN 14.7 GM/dL (11.7-16.9); MCH 29.6 pg (25.7-33.7); MCHC 35.3 g/dl (32.0-35.9); MEAN CELL VOLUME 83.8 fl (80-96); MEAN PLT VOLUME 8.9 fl (7.5-11.1); PLATELET COUNT 278 10^3/uL (134-434); RBC 4.98 M/mm3 (4.00-5.60); RDW 14.9 % (11.9-15.9); WHITE BLOOD COUNT 10.6 K/mm3 (4.0-10.0)
[2022-08-14 20:58] LABS: CALCIUM 9.1 mg/dL (8.5-10.1)
[2022-08-14 20:59] LABS: ALBUMIN 3.8 g/dl (3.4-5.0); MAGNESIUM 2.1 mg/dL (1.8-2.4)
[2022-08-14 21:01] LABS: CREATININE 1.2 mg/dL (0.55-1.3)
[2022-08-14 21:03] LABS: BILIRUBIN,TOTAL 0.6 mg/dL (0.2-1)
[2022-08-14 21:09] LABS: BLOOD UREA NITROGEN 21.2 mg/dL (7-18); TOT PROT 7.6 g/dl (6.4-8.2)
[2022-08-14 21:14] LABS: INR 0.89 (0.83-1.09); PROTHROMBIN TIME (PATIENT) 10.2 SEC (9.7-13.0)
[2022-08-14 21:16] LABS: ACTIVATED PTT 31.3 SECONDS (25.2-36.5)
[2022-08-14] MEDS ORDERED: ASPIRIN 81 MG CHEWABLE TABLETS PO ONE (23:09)
[2022-08-14] MEDS ORDERED: ASPIRIN 81 MG CHEWABLE TABLETS ONE (23:12)
[2022-08-14] MEDS ORDERED: NAPROXEN 500 MG TABLET PO PRN (23:31)
[2022-08-14] MEDS ORDERED: POLYETHYLENE GLYCOL (HEALTHYLAX) 3350 17 GM PACKET PO PRN (23:34)
[2022-08-14] MEDS ORDERED: LACTATED RINGERS SOLUTION 1,000 ML/1,000 ML INFUS.BAG IV SCH (23:45)
[2022-08-14 23:48] LABS: PH,URINE 5.5 (5.0-8.0); URINE APPEARANCE CLEAR; URINE BILIRUBIN NEGATIVE (NEGATIVE); URINE COLOR YELLOW; URINE KETONE TRACE (NEGATIVE); URINE PROTEIN NEGATIVE (NEGATIVE); URINE UROBILINOGEN 0.2 mg/dL (0.2-1.0)
[2022-08-14 23:49] LABS: EPI CELLS 0.2 /uL (0-25.1); URINE BACTERIA 1.9 /uL (0-1359); URINE LEUK ESTERASE NEGATIVE (NEGATIVE); URINE NITRITE NEGATIVE (NEGATIVE); URINE RBC 3.1 /uL (0-23.9); URINE WBC 0.3 /uL (0-25.8)
[2022-08-15] MEDS ORDERED: LEVOTHYROXINE NA 88 MCG TABLET (FP) ONE (06:12)
[2022-08-15] MEDS: INSULIN SLIDING SCALE (NOVOLOG) 1 VIAL SQ SCH ×2 (06:15→10:53)
[2022-08-15 06:34] LABS: COCAINE, UR NEGATIVE (NEGATIVE); OPIATES, URI NEGATIVE (NEGATIVE); URINE AMPHETAMINES NEGATIVE (NEGATIVE); URINE BARBITURATES NEGATIVE (NEGATIVE)
[2022-08-15 06:35] LABS: PHENCYCLIDINE,URINE NEGATIVE (NEGATIVE); URINE BENZODIAZEPINES NEGATIVE (NEGATIVE)
[2022-08-15] MEDS ORDERED: LEVOTHYROXINE NA 88 MCG TABLET (FP) PO SCH (07:00)
[2022-08-15 07:04] LABS: METHADONE, UR NEGATIVE (NEGATIVE)
[2022-08-15 07:58] LABS: BASO % 0.7 % (0-2.0); EOS % 1.1 % (0-4.5); HEMATOCRIT 42.8 % (35.4-49); HEMOGLOBIN 14.4 GM/dL (11.7-16.9); LYMPH % 34.6 % (8-40); MCH 28.1 pg (25.7-33.7); MCHC 33.5 g/dl (32.0-35.9); MEAN CELL VOLUME 83.9 fl (80-96); MEAN PLT VOLUME 8.7 fl (7.5-11.1); MONO % 6.9 % (3.8-10.2); NEUT % 56.7 % (42.8-82.8); PLATELET COUNT 227 10^3/uL (134-434); RBC 5.11 M/mm3 (4.00-5.60); RDW 15.1 % (11.9-15.9); WHITE BLOOD COUNT 7.1 K/mm3 (4.0-10.0)
[2022-08-15 08:23] LABS: MAGNESIUM 2.1 mg/dL (1.8-2.4)
[2022-08-15 08:24] LABS: ALBUMIN 3.5 g/dl (3.4-5.0); BLOOD UREA NITROGEN 20.4 mg/dL (7-18); CALCIUM 9.1 mg/dL (8.5-10.1)
[2022-08-15 08:27] LABS: PHOSPHOROUS 3.8 mg/dL (2.5-4.9)
[2022-08-15 08:28] LABS: TOT PROT 7.1 g/dl (6.4-8.2)
[2022-08-15 08:29] LABS: BILIRUBIN,TOTAL 0.4 mg/dL (0.2-1)
[2022-08-15] MEDS ORDERED: ENOXAPARIN NA (PORCINE) 40 MG/0.4 ML DISP.SYRIN SQ SCH (10:00)
[2022-08-15] MEDS ORDERED: LIDOCAINE 5% TOPICAL PATCH TP SCH (10:00)
[2022-08-15] MEDS ORDERED: SERTRALINE HCL 50 MG TABLET (FP) PO SCH (10:00)
[2022-08-15] MEDS ORDERED: KETOROLAC TROMETHAMINE 30 MG/1 ML VIAL IM ONE (10:01)
[2022-08-15] MEDS ORDERED: KETOROLAC TROMETHAMINE 30 MG/1 ML VIAL ONE (10:29)
[2022-08-15] MEDS ORDERED: ENOXAPARIN NA (PORCINE) 40 MG/0.4 ML DISP.SYRIN SQ ONE (10:29)
[2022-08-15] MEDS ORDERED: SERTRALINE HCL 50 MG TABLET (FP) ONE (10:29)
[2022-08-15] MEDS ORDERED: LIDOCAINE 5% TOPICAL PATCH ONE (10:29)
[2022-08-15 10:53] VITALS: RESP 18
[2022-08-15 17:17] VITALS: BP 138/74; PULSE 77; TEMP 98
[2022-08-15] MEDS ORDERED: SENNOSIDES 8.6MG TABLET (FP) PO SCH (22:00)
[2022-08-15] MEDS ORDERED: LIDOCAINE PATCH REMOVAL MC SCH (22:00)
== END 2022-08-15 17:17 | disposition home or self-care (01) ==
LOC: JER 18:59 → JERBED 19:43
PROVIDERS: ADMIT Internal Medicine; ATTEND Internal Medicine
PROC: 3E013VG Introduction of Insulin into Subcutaneous Tissue, Percutaneous Approach (ICD-10-PCS; principal; 2022-08-14)
PROC: 3E0233Z Introduction of Anti-inflammatory into Muscle, Percutaneous Approach (ICD-10-PCS; 2022-08-14)
PROC: 3E0337Z Introduction of Electrolytic and Water Balance Substance into Peripheral Vein, Percutaneous Approach (ICD-10-PCS; 2022-08-14)
DX: M94.0 Chondrocostal junction syndrome [Tietze] (principal); R10.9 Unspecified abdominal pain; K59.00 Constipation, unspecified; E66.01 Morbid (severe) obesity due to excess calories; Z68.42 Body mass index [BMI] 45.0-49.9, adult; I10 Essential (primary) hypertension; E78.5 Hyperlipidemia, unspecified; E11.9 Type 2 diabetes mellitus without complications; I25.2 Old myocardial infarction; F89 Unspecified disorder of psychological development; E03.9 Hypothyroidism, unspecified
CPT/HCPCS: 0241U-QW; 36415; 71046-TC-FY; 71275-TC; 76705-TC; 80053; 80061; 80307; 81003; 82550; 82553; 82962; 83036; 83605; 83690; 83735; 84100; 84443; 84484; 85025; 85027; 85379; 85610; 85730; 87086; 93005; 93010; 96360; 96372; 99285-25; G0378

== ENCOUNTER 2022-08-16 23:32 | Observation (INO) | payer OTHER ==
[2022-08-16 23:59] VITALS: BMI 48.0
[2022-08-17 00:14] VITALS: RESP 18
[2022-08-17 01:17] LABS: HEMATOCRIT 41.1 % (35.4-49); HEMOGLOBIN 13.9 GM/dL (11.7-16.9); MCH 28.3 pg (25.7-33.7); MCHC 33.7 g/dl (32.0-35.9); MEAN CELL VOLUME 83.8 fl (80-96); MEAN PLT VOLUME 9.1 fl (7.5-11.1); PLATELET COUNT 252 10^3/uL (134-434); RDW 15.2 % (11.9-15.9); WHITE BLOOD COUNT 10.4 K/mm3 (4.0-10.0)
[2022-08-17 01:26] LABS: PH,URINE 7.5 (5.0-8.0); URINE APPEARANCE CLEAR; URINE BILIRUBIN NEGATIVE (NEGATIVE); URINE COLOR YELLOW; URINE GLUCOSE (UA) 3+ (NEGATIVE); URINE KETONE NEGATIVE (NEGATIVE); URINE LEUK ESTERASE NEGATIVE (NEGATIVE); URINE NITRITE NEGATIVE (NEGATIVE); URINE PROTEIN NEGATIVE (NEGATIVE); URINE UROBILINOGEN 0.2 mg/dL (0.2-1.0)
[2022-08-17 01:35] LABS: METHADONE, UR NEGATIVE (NEGATIVE); PHENCYCLIDINE,URINE NEGATIVE (NEGATIVE); URINE BENZODIAZEPINES NEGATIVE (NEGATIVE)
[2022-08-17 01:36] LABS: CALCIUM 8.7 mg/dL (8.5-10.1); COCAINE, UR NEGATIVE (NEGATIVE); OPIATES, URI NEGATIVE (NEGATIVE); URINE BARBITURATES NEGATIVE (NEGATIVE)
[2022-08-17 01:37] LABS: ALBUMIN 3.6 g/dl (3.4-5.0); BLOOD UREA NITROGEN 24.2 mg/dL (7-18); INR 0.92 (0.83-1.09); PROTHROMBIN TIME (PATIENT) 10.6 SEC (9.7-13.0)
[2022-08-17 01:40] LABS: ACTIVATED PTT 30.3 SECONDS (25.2-36.5)
[2022-08-17 01:41] LABS: BILIRUBIN,TOTAL 0.4 mg/dL (0.2-1); URINE AMPHETAMINES NEGATIVE (NEGATIVE)
[2022-08-17 01:42] LABS: TOT PROT 7.3 g/dl (6.4-8.2)
[2022-08-17] MEDS: SODIUM CHLORIDE 1,000 ML IV SCH ×2 (04:03→06:12)
[2022-08-17 04:39] LABS: ANISOCYTOSIS 2+; MACROCYTOSIS 0; TEAR DROP CELLS 2+
[2022-08-17] MEDS ORDERED: LEVOTHYROXINE NA 88 MCG TABLET (FP) PO SCH (07:00)
[2022-08-17] MEDS ORDERED: risperiDONE 1 MG TABLET PO SCH (07:00)
[2022-08-17] MEDS ORDERED: SODIUM CHLORIDE 1,000 ML IV SCH (07:22)
[2022-08-17] MEDS ORDERED: DIVALPROEX SODIUM 500 MG TABLET E.C. PO SCH ×2 (07:30→22:00)
[2022-08-17 08:45] LABS: BASO % 0.6 % (0-2.0); EOS % 1.3 % (0-4.5); HEMATOCRIT 42.2 % (35.4-49); HEMOGLOBIN 14.1 GM/dL (11.7-16.9); LYMPH % 31.3 % (8-40); MCH 27.8 pg (25.7-33.7); MCHC 33.5 g/dl (32.0-35.9); MEAN CELL VOLUME 83.1 fl (80-96); MEAN PLT VOLUME 8.3 fl (7.5-11.1); MONO % 5.7 % (3.8-10.2); NEUT % 61.1 % (42.8-82.8); PLATELET COUNT 230 10^3/uL (134-434); RBC 5.08 M/mm3 (4.00-5.60)
[2022-08-17 09:01] LABS: ALBUMIN 3.6 g/dl (3.4-5.0)
[2022-08-17 09:02] LABS: BLOOD UREA NITROGEN 20.3 mg/dL (7-18); MAGNESIUM 2.3 mg/dL (1.8-2.4)
[2022-08-17 09:04] LABS: CREATININE 0.9 mg/dL (0.55-1.3); PHOSPHOROUS 3.6 mg/dL (2.5-4.9)
[2022-08-17 09:06] LABS: BILIRUBIN,TOTAL 0.4 mg/dL (0.2-1); TOT PROT 7.2 g/dl (6.4-8.2)
[2022-08-17] MEDS ORDERED: LISINOPRIL 5 MG TABLET PO SCH (10:00)
[2022-08-17] MEDS ORDERED: ENOXAPARIN NA (PORCINE) 40 MG/0.4 ML DISP.SYRIN SQ SCH (10:00)
[2022-08-17] MEDS ORDERED: FENOFIBRIC ACID 135 MG CAP PO SCH (10:00)
[2022-08-17] MEDS ORDERED: SERTRALINE HCL 50 MG TABLET (FP) PO SCH (10:00)
[2022-08-17] MEDS ORDERED: DIVALPROEX PO SCH (10:00)
[2022-08-17] MEDS ORDERED: metoPROLOL SUCCINATE 25 MG TAB.SR.24H (FP) PO SCH (10:00)
[2022-08-17] MEDS: INSULIN SLIDING SCALE (NOVOLOG) 1 VIAL SQ SCH ×2 (12:42→12:53)
[2022-08-17 14:06] VITALS: BP 127/68; PULSE 96; TEMP 98.4
[2022-08-17] MEDS ORDERED: risperiDONE 3 MG TABLET PO SCH (22:00)
[2022-08-17] MEDS ORDERED: ATORVASTATIN CA 40 MG TABLET (FP) PO SCH (22:00)
== END 2022-08-17 15:38 | disposition home or self-care (01) ==
LOC: JER 23:32 → INTOOBSV 08-17 02:02 → JERBED 08-17 02:02 → MERGE 08-17 02:02 → J4W 08-17 09:03
PROVIDERS: ADMIT Internal Medicine; ATTEND Internal Medicine
PROC: 3E023GC Introduction of Other Therapeutic Substance into Muscle, Percutaneous Approach (ICD-10-PCS; principal; 2022-08-17)
PROC: 3E013VG Introduction of Insulin into Subcutaneous Tissue, Percutaneous Approach (ICD-10-PCS; 2022-08-17)
PROC: 3E0337Z Introduction of Electrolytic and Water Balance Substance into Peripheral Vein, Percutaneous Approach (ICD-10-PCS; 2022-08-17)
DX: R68.84 Jaw pain (principal); E03.9 Hypothyroidism, unspecified; E66.01 Morbid (severe) obesity due to excess calories; Q89.9 Congenital malformation, unspecified; Z68.42 Body mass index [BMI] 45.0-49.9, adult; I25.2 Old myocardial infarction; E10.8 Type 1 diabetes mellitus with unspecified complications; I10 Essential (primary) hypertension; E78.5 Hyperlipidemia, unspecified; S03.42XA Sprain of jaw, left side, initial encounter; X58.XXXA Exposure to other specified factors, initial encounter; Y93.89 Activity, other specified; Y92.89 Other specified places as the place of occurrence of the external cause; Z95.5 Presence of coronary angioplasty implant and graft
CPT/HCPCS: 0241U-QW; 36415; 70450-TC; 70496-TC; 70498-TC; 71045-TC-FY; 80053; 80307; 81003; 82962; 83735; 84100; 84484; 85025; 85610; 85730; 93005; 93010; 96360; 96361; 96372; 99285-25; G0378; Q9967

== ENCOUNTER 2022-10-24 21:16 | Emergency (ER) | payer OTHER ==
[2022-10-24 21:35] VITALS: BP 130/81; PULSE 110; RESP 22; TEMP 97.9; BMI 49.2
[2022-10-24] MEDS ORDERED: ALBUTEROL SO4 2.5/IPRATROPIUM 0.5 INH SOL 3 ML VIAL.NEB. NEB ONE ×2 (22:14→22:45)
[2022-10-24 23:05] LABS: BASO % 1.1 % (0-2.0); EOS % 0.8 % (0-4.5); HEMATOCRIT 41.3 % (35.4-49); HEMOGLOBIN 14.1 GM/dL (11.7-16.9); LYMPH % 37.4 % (8-40); MCH 28.6 pg (25.7-33.7); MCHC 34.3 g/dl (32.0-35.9); MEAN CELL VOLUME 83.5 fl (80-96); MEAN PLT VOLUME 8.2 fl (7.5-11.1); MONO % 7.8 % (3.8-10.2); NEUT % 52.9 % (42.8-82.8); PLATELET COUNT 250 10^3/uL (134-434); RBC 4.94 M/mm3 (4.00-5.60); RDW 16.1 % (11.9-15.9); WHITE BLOOD COUNT 9.2 K/mm3 (4.0-10.0)
[2022-10-24 23:14] LABS: INR 0.98 (0.83-1.09); PROTHROMBIN TIME (PATIENT) 11.4 SEC (9.7-13.0)
[2022-10-24 23:28] LABS: ALBUMIN 3.8 g/dl (3.4-5.0); CALCIUM 8.7 mg/dL (8.5-10.1)
[2022-10-24 23:29] LABS: BLOOD UREA NITROGEN 24.3 mg/dL (7-18); MAGNESIUM 2.1 mg/dL (1.8-2.4)
[2022-10-24 23:32] LABS: CREATININE 1.1 mg/dL (0.55-1.3)
[2022-10-24 23:33] LABS: BILIRUBIN,TOTAL 0.6 mg/dL (0.2-1); TOT PROT 7.7 g/dl (6.4-8.2)
== END 2022-10-25 03:14 | disposition home or self-care (01) ==
LOC: JER 21:16
PROC: 3E0F7GC Introduction of Other Therapeutic Substance into Respiratory Tract, Via Natural or Artificial Opening (ICD-10-PCS; principal; 2022-10-24)
DX: R07.89 Other chest pain (principal); Z71.6 Tobacco abuse counseling
CPT/HCPCS: 0241U-QW; 36415; 71046-TC-FY; 71275-TC; 80053; 83735; 84484; 85025; 85379; 85610; 93005; 93010; 94640; 99285-25; Q9967

== ENCOUNTER 2022-10-26 21:15 | Emergency (ER) | payer OTHER ==
[2022-10-26 21:30] VITALS: BP 114/74; PULSE 105; RESP 20; TEMP 98.4; BMI 49.2
[2022-10-26] MEDS ORDERED: POLYETHYLENE GLYCOL (HEALTHYLAX) 3350 17 GM PACKET PO ONE (22:00)
[2022-10-26] MEDS ORDERED: MAG HYDROX/AL HYDROX/SIMETH 30 ML UNIT-DOSE CUP PO ONE (22:05)
[2022-10-26] MEDS ORDERED: FAMOTIDINE 20 MG/50 ML IVPB 20 MG/50 ML MG IVPB ONE ×2 (22:05→22:10)
[2022-10-26] MEDS ORDERED: MAG HYDROX/AL HYDROX/SIMETH 30 ML UNIT-DOSE CUP ONE ×2 (22:10→23:17)
[2022-10-26] MEDS ORDERED: POLYETHYLENE GLYCOL (HEALTHYLAX) 3350 17 GM PACKET ONE (23:17)
[2022-10-26 23:22] LABS: BASO % 1.6 % (0-2.0); EOS % 1.3 % (0-4.5); HEMOGLOBIN 13.4 GM/dL (11.7-16.9); LYMPH % 40.1 % (8-40); MCH 28.7 pg (25.7-33.7); MCHC 34.4 g/dl (32.0-35.9); MEAN CELL VOLUME 83.4 fl (80-96); MEAN PLT VOLUME 8.4 fl (7.5-11.1); MONO % 6.8 % (3.8-10.2); NEUT % 50.2 % (42.8-82.8); PLATELET COUNT 244 10^3/uL (134-434); RBC 4.68 M/mm3 (4.00-5.60); RDW 15.7 % (11.9-15.9); WHITE BLOOD COUNT 9.4 K/mm3 (4.0-10.0)
[2022-10-26 23:30] LABS: INR 0.97 (0.83-1.09); PROTHROMBIN TIME (PATIENT) 11.3 SEC (9.7-13.0)
[2022-10-26 23:32] LABS: ACTIVATED PTT 31.5 SECONDS (25.2-36.5)
[2022-10-26 23:44] LABS: CALCIUM 8.4 mg/dL (8.5-10.1)
[2022-10-26] MEDS ORDERED: SODIUM CHLORIDE 0.9% 500 ML INFUS.BAG IV ONE (23:44)
[2022-10-26 23:45] LABS: ALBUMIN 3.5 g/dl (3.4-5.0); BLOOD UREA NITROGEN 15.6 mg/dL (7-18); MAGNESIUM 1.9 mg/dL (1.8-2.4)
[2022-10-26 23:48] LABS: CREATININE 1.1 mg/dL (0.55-1.3)
[2022-10-26 23:50] LABS: BILIRUBIN,TOTAL 0.4 mg/dL (0.2-1)
== END 2022-10-27 10:19 | disposition home or self-care (01) ==
LOC: JER 21:15
PROC: 3E033GC Introduction of Other Therapeutic Substance into Peripheral Vein, Percutaneous Approach (ICD-10-PCS; principal; 2022-10-26)
DX: R07.89 Other chest pain (principal)
CPT/HCPCS: 36415; 71046-TC-FY; 80053; 83690; 83735; 84484; 85025; 85610; 85730; 93005; 93010; 96365; 99285-25

== ENCOUNTER 2022-12-23 11:05 | Inpatient (IN) | payer OTHER ==
[2022-12-23] MEDS ORDERED: SODIUM CHLORIDE 0.9% 500 ML INFUS.BAG IV ONE (12:23)
[2022-12-23 13:22] LABS: BASO % 0.8 % (0-2.0); EOS % 0.9 % (0-4.5); HEMATOCRIT 43.1 % (35.4-49); HEMOGLOBIN 14.5 GM/dL (11.7-16.9); LYMPH % 30.8 % (8-40); MCH 28.3 pg (25.7-33.7); MCHC 33.8 g/dl (32.0-35.9); MEAN CELL VOLUME 83.9 fl (80-96); MEAN PLT VOLUME 8.1 fl (7.5-11.1); MONO % 6.7 % (3.8-10.2); NEUT % 60.8 % (42.8-82.8); PLATELET COUNT 214 10^3/uL (134-434); RBC 5.13 M/mm3 (4.00-5.60); RDW 15.7 % (11.9-15.9); WHITE BLOOD COUNT 7.1 K/mm3 (4.0-10.0)
[2022-12-23 13:25] LABS: VENOUS BASE EXCESS 2.6 mmol/L (-2-2); VENOUS O2 SATURATION 67.9 % (70-80); VENOUS PCO2 53.5 mmHg (38-52); VENOUS PH 7.358 (7.310-7.410)
[2022-12-23 13:47] LABS: BLOOD UREA NITROGEN 17.4 mg/dL (7-18); CALCIUM 9.5 mg/dL (8.5-10.1)
[2022-12-23 13:48] LABS: ALBUMIN 3.7 g/dl (3.4-5.0)
[2022-12-23 13:50] LABS: CREATININE 0.9 mg/dL (0.55-1.3)
[2022-12-23 13:52] LABS: BILIRUBIN,TOTAL 0.4 mg/dL (0.2-1); TOT PROT 7.6 g/dl (6.4-8.2)
[2022-12-23] MEDS ORDERED: ACETAMINOPHEN 1000 MG/100 ML BAG IVPB ONE (17:19)
[2022-12-23] MEDS ORDERED: ACETAMINOPHEN INJECTION 100 ML IVPB ONE (17:41)
[2022-12-23 18:08] LABS: URINE APPEARANCE CLEAR; URINE BILIRUBIN NEGATIVE (NEGATIVE); URINE COLOR YELLOW; URINE GLUCOSE (UA) 3+ (NEGATIVE); URINE KETONE TRACE (NEGATIVE); URINE LEUK ESTERASE NEGATIVE (NEGATIVE); URINE NITRITE NEGATIVE (NEGATIVE); URINE PROTEIN NEGATIVE (NEGATIVE); URINE UROBILINOGEN 0.2 mg/dL (0.2-1.0)
[2022-12-23 21:48] LABS: PHENCYCLIDINE,URINE NEGATIVE (NEGATIVE); URINE BARBITURATES NEGATIVE (NEGATIVE)
[2022-12-23 21:49] LABS: COCAINE, UR NEGATIVE (NEGATIVE); METHADONE, UR NEGATIVE (NEGATIVE); OPIATES, URI NEGATIVE (NEGATIVE); URINE AMPHETAMINES NEGATIVE (NEGATIVE); URINE BENZODIAZEPINES NEGATIVE (NEGATIVE)
[2022-12-23] MEDS ORDERED: LURASIDONE HCL 40 MG TABLET PO SCH (22:00)
[2022-12-23 22:39] LABS: MAGNESIUM 2.1 mg/dL (1.8-2.4)
[2022-12-23 22:42] LABS: PHOSPHOROUS 3.2 mg/dL (2.5-4.9)
[2022-12-24] MEDS ORDERED: DIVALPROEX SODIUM 500 MG TABLET E.C. ONE (02:20)
[2022-12-24] MEDS ORDERED: ATORVASTATIN CA 40 MG TABLET (FP) ONE (02:20)
[2022-12-24] MEDS ORDERED: ENOXAPARIN NA (PORCINE) 40 MG/0.4 ML DISP.SYRIN SQ ONE (02:21)
[2022-12-24] MEDS ORDERED: LURASIDONE HCL 40 MG TABLET PO SCH (02:41)
[2022-12-24] MEDS: DESMOPRESSIN ACETATE 0.2 MG TABLET PO SCH ×2 (02:59→22:26)
[2022-12-24] MEDS: SODIUM CHLORIDE 1,000 ML IV SCH ×2 (02:59→17:19)
[2022-12-24] MEDS: ATORVASTATIN CA 40 MG TABLET (FP) PO SCH ×2 (03:00→22:28)
[2022-12-24] MEDS: DIVALPROEX SODIUM 500 MG TABLET E.C. PO SCH ×3 (03:00→22:27)
[2022-12-24] MEDS: risperiDONE 1 MG TABLET PO SCH ×3 (03:00→22:28)
[2022-12-24] MEDS: ENOXAPARIN NA (PORCINE) 40 MG/0.4 ML DISP.SYRIN SQ SCH ×3 (03:01→22:28)
[2022-12-24] MEDS: INSULIN SLIDING SCALE (NOVOLOG) 1 VIAL SQ SCH ×5 (03:01→22:30)
[2022-12-24 04:54] VITALS: RESP 20
[2022-12-24 05:19] VITALS: BMI 45.2
[2022-12-24] MEDS ORDERED: INSULIN (NOVOLOG) ASPART 100 UNITS/ML 10ML VIAL ONE ×2 (06:21→13:09)
[2022-12-24] MEDS: LEVOTHYROXINE NA 88 MCG TABLET (FP) PO SCH (06:29)
[2022-12-24] MEDS ORDERED: PATIENT'S OWN MEDICATION (NON-FORMULARY) (Icosapent Ethyl [Vascepa] 1 GM Capsule) PO SCH (07:00)
[2022-12-24 07:41] LABS: ALBUMIN 3.4 g/dl (3.4-5.0); BLOOD UREA NITROGEN 18.1 mg/dL (7-18); CALCIUM 8.8 mg/dL (8.5-10.1)
[2022-12-24 07:44] LABS: CHOLESTEROL 146 mg/dL (50-200); CREATININE 0.8 mg/dL (0.55-1.3); PHOSPHOROUS 3.3 mg/dL (2.5-4.9)
[2022-12-24 07:45] LABS: LDL CHOLESTEROL (ONLY SJRH) 86 mg/dL (5-100)
[2022-12-24 07:46] LABS: BILIRUBIN,TOTAL 0.4 mg/dL (0.2-1)
[2022-12-24 07:47] LABS: HDL CHOLESTEROL 21 mg/dL (40-60)
[2022-12-24] MEDS: NICOTINE 14 MG/24 HOURS TOPICAL PATCH TD SCH (10:13)
[2022-12-24] MEDS: ASPIRIN COATED 81 MG TABLET.EC PO SCH (10:13)
[2022-12-24] MEDS: SERTRALINE HCL 50 MG TABLET (FP) PO SCH (10:13)
[2022-12-24] MEDS ORDERED: MECLIZINE HCL 12.5 MG TABLET PO PRN (11:23)
[2022-12-24] MEDS: FENOFIBRIC ACID 135 MG CAP PO SCH (13:15)
[2022-12-24] MEDS: HALOPERIDOL 0.5 MG TABLET PO SCH (13:16)
[2022-12-24] MEDS: TOLTERODINE TARTRATE LA 4 MG CAP.SR.24H (FP) PO SCH (13:16)
[2022-12-24] MEDS: FLUTICASONE PROP 0.05% 16 GM NASAL SPRAY NS SCH (13:17)
[2022-12-25] MEDS: INSULIN SLIDING SCALE (NOVOLOG) 1 VIAL SQ SCH (06:58)
[2022-12-25] MEDS: risperiDONE 1 MG TABLET PO SCH (06:59)
[2022-12-25] MEDS: LEVOTHYROXINE NA 88 MCG TABLET (FP) PO SCH (06:59)
[2022-12-25 07:40] VITALS: PULSE 95
[2022-12-25] MEDS ORDERED: INSULIN (LEVEMIR) 100 UNITS/ML UNITS SQ ONE (08:20)
[2022-12-25] MEDS ORDERED: INSULIN (LEVEMIR) 100 UNITS/ML UNITS SQ SCH (08:30)
[2022-12-25] MEDS: ASPIRIN COATED 81 MG TABLET.EC PO SCH (09:21)
[2022-12-25] MEDS: SERTRALINE HCL 50 MG TABLET (FP) PO SCH (09:21)
[2022-12-25] MEDS: NICOTINE 14 MG/24 HOURS TOPICAL PATCH TD SCH (09:22)
[2022-12-25] MEDS: FENOFIBRIC ACID 135 MG CAP PO SCH (09:22)
[2022-12-25] MEDS: HALOPERIDOL 0.5 MG TABLET PO SCH (09:22)
[2022-12-25] MEDS: ENOXAPARIN NA (PORCINE) 40 MG/0.4 ML DISP.SYRIN SQ SCH (09:22)
[2022-12-25] MEDS: TOLTERODINE TARTRATE LA 4 MG CAP.SR.24H (FP) PO SCH (09:22)
[2022-12-25] MEDS: DIVALPROEX SODIUM 500 MG TABLET E.C. PO SCH (09:23)
[2022-12-25] MEDS: FLUTICASONE PROP 0.05% 16 GM NASAL SPRAY NS SCH (09:24)
[2022-12-25 10:52] VITALS: BP 149/84; TEMP 97.7
[2022-12-25] MEDS ORDERED: MECLIZINE HCL 12.5 MG TABLET PO SCH (11:00)
[2022-12-26] MEDS ORDERED: INSULIN (LEVEMIR) 100 UNITS/ML UNITS SQ SCH (07:00)
== END 2022-12-25 11:22 | disposition home or self-care (01) | DRG 149 ==
LOC: JER 11:05 → JERBED 18:54 → J4W 12-24 04:49 → OBSVTOIN 12-24 13:49
PROVIDERS: ADMIT Internal Medicine; ATTEND Internal Medicine
DX: R42 Dizziness and giddiness (principal); Z68.42 Body mass index [BMI] 45.0-49.9, adult; I10 Essential (primary) hypertension; E78.5 Hyperlipidemia, unspecified; E11.9 Type 2 diabetes mellitus without complications; I25.2 Old myocardial infarction; R41.82 Altered mental status, unspecified; E03.9 Hypothyroidism, unspecified; H53.2 Diplopia; R26.81 Unsteadiness on feet; E78.1 Pure hyperglyceridemia; E66.01 Morbid (severe) obesity due to excess calories; F81.89 Other developmental disorders of scholastic skills; I25.10 Atherosclerotic heart disease of native coronary artery without angina pectoris; M25.552 Pain in left hip; M25.512 Pain in left shoulder
CPT/HCPCS: 0241U-QW; 36415; 70450-TC; 71045-TC-FY; 73030-TC-LT-FY; 73502-TC-LT-FY; 80053; 80061; 80307; 81003; 82550; 82553; 82803; 82962; 83036; 83605; 83735; 84100; 84443; 84484; 85025; 87086; 93005; 93010; 97116-GP; 97162-GP; 99285-25; G0378

== ENCOUNTER 2022-12-28 19:28 | Inpatient (IN) | payer OTHER ==
[2022-12-28 22:09] LABS: VENOUS BASE EXCESS 0.7 mmol/L (-2-2); VENOUS O2 SATURATION 73.1 % (70-80); VENOUS PCO2 43.2 mmHg (38-52); VENOUS PH 7.395 (7.310-7.410)
[2022-12-28] MEDS: ALBUTEROL SO4 2.5/IPRATROPIUM 0.5 INH SOL 3 ML VIAL.NEB. NEB SCH ×3 (22:15→22:46)
[2022-12-28 22:21] LABS: BASO % 0.6 % (0-2.0); EOS % 2.8 % (0-4.5); HEMATOCRIT 38.7 % (35.4-49); HEMOGLOBIN 13.6 GM/dL (11.7-16.9); LYMPH % 28.4 % (8-40); MCH 29.5 pg (25.7-33.7); MCHC 35.2 g/dl (32.0-35.9); MEAN CELL VOLUME 83.9 fl (80-96); MEAN PLT VOLUME 8.6 fl (7.5-11.1); MONO % 10.4 % (3.8-10.2); NEUT % 57.8 % (42.8-82.8); PLATELET COUNT 225 10^3/uL (134-434); RBC 4.62 M/mm3 (4.00-5.60); RDW 15.7 % (11.9-15.9)
[2022-12-28 22:23] LABS: PH,URINE 6.5 (5.0-8.0); URINE APPEARANCE CLEAR; URINE BILIRUBIN NEGATIVE (NEGATIVE); URINE COLOR YELLOW; URINE GLUCOSE (UA) 3+ (NEGATIVE); URINE KETONE TRACE (NEGATIVE); URINE LEUK ESTERASE NEGATIVE (NEGATIVE); URINE NITRITE NEGATIVE (NEGATIVE); URINE PROTEIN NEGATIVE (NEGATIVE); URINE UROBILINOGEN 0.2 mg/dL (0.2-1.0)
[2022-12-28 22:33] LABS: INR 0.9 (0.83-1.09); PROTHROMBIN TIME (PATIENT) 10.4 SEC (9.7-13.0)
[2022-12-28 22:36] LABS: ACTIVATED PTT 31.6 SECONDS (25.2-36.5); CALCIUM 8.1 mg/dL (8.5-10.1)
[2022-12-28 22:37] LABS: ALBUMIN 3.4 g/dl (3.4-5.0); BLOOD UREA NITROGEN 23.9 mg/dL (7-18)
[2022-12-28 22:40] LABS: CREATININE 1.2 mg/dL (0.55-1.3)
[2022-12-28 22:41] LABS: BILIRUBIN,TOTAL 0.6 mg/dL (0.2-1)
[2022-12-28] MEDS ORDERED: ALBUTEROL SO4 2.5/IPRATROPIUM 0.5 INH SOL 3 ML VIAL.NEB. NEB ONE (22:42)
[2022-12-28 22:57] LABS: TOT PROT 7.1 g/dl (6.4-8.2)
[2022-12-28] MEDS ORDERED: SODIUM CHLORIDE 0.9% 500 ML INFUS.BAG IV ONE (23:23)
[2022-12-29 00:53] LABS: BLOOD UREA NITROGEN 25.6 mg/dL (7-18)
[2022-12-29 00:56] LABS: CREATININE 1.4 mg/dL (0.55-1.3)
[2022-12-29] MEDS ORDERED: PIPERACILLIN/TAZOB 4.5 GM 4.5 GM in DEXTROSE 5%-WATER 100 ML IVPB ONE (02:10)
[2022-12-29] MEDS ORDERED: WATER IVPB ONE (02:11)
[2022-12-29] MEDS ORDERED: VANCOMYCIN HCL IVPB ONE (02:11)
[2022-12-29] MEDS ORDERED: DEXTROSE 5% IVPB ONE (02:11)
[2022-12-29] MEDS ORDERED: PIPERACILLIN/TAZOB 4.5 GM 4.5 GM/100 ML BAG IVPB ONE (02:18)
[2022-12-29 04:37] VITALS: BMI 44.1
[2022-12-29] MEDS: VANCOMYCIN PREMIX 1.5 GM 1,500 MG/300 ML BAG IVPB SCH ×2 (05:02→07:37)
[2022-12-29] MEDS ORDERED: HEPARIN NA (PORCINE) 5,000 UNITS/ML 1ML VIAL SQ SCH (06:00)
[2022-12-29] MEDS ORDERED: PIPERACILLIN/TAZOB 4.5 GM 4.5 GM in DEXTROSE 5%-WATER 100 ML IVPB SCH (06:15)
[2022-12-29] MEDS: INSULIN SLIDING SCALE (NOVOLOG) 1 VIAL SQ SCH ×4 (06:22→22:19)
[2022-12-29] MEDS ORDERED: MECLIZINE HCL 12.5 MG TABLET PO PRN (06:49)
[2022-12-29] MEDS ORDERED: PATIENT'S OWN MEDICATION (NON-FORMULARY) (Icosapent Ethyl [Vascepa] 1 GM Capsule) PO SCH (07:00)
[2022-12-29] MEDS: LEVOTHYROXINE NA 88 MCG TABLET (FP) PO SCH (07:37)
[2022-12-29] MEDS: INSULIN (LEVEMIR) 100 UNITS/ML UNITS SQ SCH ×2 (07:38→22:16)
[2022-12-29] MEDS: ALBUTEROL SO4 2.5/IPRATROPIUM 0.5 INH SOL 3 ML VIAL.NEB. NEB SCH ×4 (08:11→20:20)
[2022-12-29] MEDS: methylPREDNISolone NA SUCC 40 MG/1 ML VIAL IVPUSH SCH ×4 (08:51→22:14)
[2022-12-29] MEDS: PIPERACILLIN/TAZOB 4.5 GM 4.5 GM in DEXTROSE 5%-WATER 100 ML IVPB SCH ×3 (08:51→22:14)
[2022-12-29 09:10] LABS: HEMATOCRIT 37.4 % (35.4-49); MCHC 34.6 g/dl (32.0-35.9); MEAN CELL VOLUME 83.7 fl (80-96); MEAN PLT VOLUME 8.7 fl (7.5-11.1); PLATELET COUNT 186 10^3/uL (134-434); RBC 4.47 M/mm3 (4.00-5.60); RDW 15.6 % (11.9-15.9); WHITE BLOOD COUNT 5.9 K/mm3 (4.0-10.0)
[2022-12-29] MEDS: SERTRALINE HCL 50 MG TABLET (FP) PO SCH (09:25)
[2022-12-29] MEDS: FENOFIBRIC ACID 135 MG CAP PO SCH (09:26)
[2022-12-29] MEDS: DIVALPROEX SODIUM 500 MG TABLET E.C. PO SCH ×2 (09:26→22:15)
[2022-12-29] MEDS: HALOPERIDOL 0.5 MG TABLET PO SCH (09:26)
[2022-12-29] MEDS: MULTIVITAMINS (DAILY MVI) TABLET (FP) PO SCH (09:26)
[2022-12-29] MEDS: LORATADINE 10 MG TABLET PO SCH (09:26)
[2022-12-29] MEDS: ASPIRIN COATED 81 MG TABLET.EC PO SCH (09:26)
[2022-12-29] MEDS: risperiDONE 1 MG TABLET PO SCH ×2 (09:26→22:17)
[2022-12-29] MEDS: TOLTERODINE TARTRATE LA 4 MG CAP.SR.24H (FP) PO SCH (09:26)
[2022-12-29 09:41] LABS: BLOOD UREA NITROGEN 21.1 mg/dL (7-18); CALCIUM 8.5 mg/dL (8.5-10.1)
[2022-12-29 09:42] LABS: ALBUMIN 3.4 g/dl (3.4-5.0)
[2022-12-29 09:44] LABS: BILIRUBIN,TOTAL 0.5 mg/dL (0.2-1)
[2022-12-29 09:46] LABS: TOT PROT 6.9 g/dl (6.4-8.2)
[2022-12-29] MEDS ORDERED: LISINOPRIL 5 MG TABLET PO SCH (10:00)
[2022-12-29] MEDS ORDERED: RISPERIDONE PO SCH (22:00)
[2022-12-29] MEDS ORDERED: RISPERIDONE 3 MG PO SCH (22:00)
[2022-12-29] MEDS: ATORVASTATIN CA 40 MG TABLET (FP) PO SCH (22:15)
[2022-12-29] MEDS: DESMOPRESSIN ACETATE 0.2 MG TABLET PO SCH (22:18)
[2022-12-29] MEDS: LURASIDONE HCL 40 MG TABLET PO SCH (22:19)
[2022-12-30] MEDS: methylPREDNISolone NA SUCC 40 MG/1 ML VIAL IVPUSH SCH ×5 (03:56→21:51)
[2022-12-30] MEDS: PIPERACILLIN/TAZOB 4.5 GM 4.5 GM in DEXTROSE 5%-WATER 100 ML IVPB SCH (03:56)
[2022-12-30] MEDS: INSULIN SLIDING SCALE (NOVOLOG) 1 VIAL SQ SCH ×4 (06:19→21:53)
[2022-12-30] MEDS: INSULIN (LEVEMIR) 100 UNITS/ML UNITS SQ SCH ×2 (06:19→21:52)
[2022-12-30] MEDS: LEVOTHYROXINE NA 88 MCG TABLET (FP) PO SCH (06:22)
[2022-12-30] MEDS: risperiDONE 1 MG TABLET PO SCH (06:22)
[2022-12-30] MEDS: ALBUTEROL SO4 2.5/IPRATROPIUM 0.5 INH SOL 3 ML VIAL.NEB. NEB SCH ×4 (08:40→20:31)
[2022-12-30] MEDS ORDERED: PIPERACILLIN/TAZOB 4.5 GM 4.5 GM in DEXTROSE 5%-WATER 100 ML IVPB SCH (09:00)
[2022-12-30] MEDS: MULTIVITAMINS (DAILY MVI) TABLET (FP) PO SCH (09:20)
[2022-12-30] MEDS: DIVALPROEX SODIUM 500 MG TABLET E.C. PO SCH ×2 (09:20→21:51)
[2022-12-30] MEDS: FENOFIBRIC ACID 135 MG CAP PO SCH (09:20)
[2022-12-30] MEDS: ENOXAPARIN NA (PORCINE) 40 MG/0.4 ML DISP.SYRIN SQ SCH (09:20)
[2022-12-30] MEDS: ASPIRIN COATED 81 MG TABLET.EC PO SCH (09:20)
[2022-12-30] MEDS: LORATADINE 10 MG TABLET PO SCH (09:21)
[2022-12-30] MEDS: SERTRALINE HCL 50 MG TABLET (FP) PO SCH (09:21)
[2022-12-30] MEDS: TOLTERODINE TARTRATE LA 4 MG CAP.SR.24H (FP) PO SCH (09:22)
[2022-12-30] MEDS: HALOPERIDOL 0.5 MG TABLET PO SCH (09:23)
[2022-12-30] MEDS: AZITHROMYCIN IVPB 500 MG/250 ML BAG IVPB SCH (11:05)
[2022-12-30] MEDS: CEFTRIAXONE 2 GM in DEXTROSE 5%-WATER 100 ML IVPB SCH (11:05)
[2022-12-30 11:08] LABS: HEMATOCRIT 41.8 % (35.4-49); HEMOGLOBIN 14.4 GM/dL (11.7-16.9); MCH 28.9 pg (25.7-33.7); MCHC 34.4 g/dl (32.0-35.9); MEAN CELL VOLUME 83.9 fl (80-96); MEAN PLT VOLUME 8.9 fl (7.5-11.1); PLATELET COUNT 227 10^3/uL (134-434); RBC 4.98 M/mm3 (4.00-5.60); RDW 15.7 % (11.9-15.9); WHITE BLOOD COUNT 7.4 K/mm3 (4.0-10.0)
[2022-12-30 11:25] LABS: CALCIUM 9.3 mg/dL (8.5-10.1)
[2022-12-30 11:26] LABS: ALBUMIN 3.6 g/dl (3.4-5.0); BLOOD UREA NITROGEN 25.2 mg/dL (7-18); MAGNESIUM 2.3 mg/dL (1.8-2.4)
[2022-12-30 11:28] LABS: CREATININE 1.1 mg/dL (0.55-1.3); PHOSPHOROUS 4.6 mg/dL (2.5-4.9)
[2022-12-30 11:30] LABS: BILIRUBIN,TOTAL 0.4 mg/dL (0.2-1); TOT PROT 7.8 g/dl (6.4-8.2)
[2022-12-30 15:43] VITALS: RESP 18
[2022-12-30] MEDS: LURASIDONE HCL 40 MG TABLET PO SCH (21:51)
[2022-12-30] MEDS: ATORVASTATIN CA 40 MG TABLET (FP) PO SCH (21:51)
[2022-12-30] MEDS: DESMOPRESSIN ACETATE 0.2 MG TABLET PO SCH (21:51)
[2022-12-31] MEDS: guaiFENesin 600 MG TABLET.ER (FP) PO SCH ×3 (00:13→22:05)
[2022-12-31] MEDS: risperiDONE 1 MG TABLET PO SCH ×3 (00:13→22:06)
[2022-12-31] MEDS: methylPREDNISolone NA SUCC 40 MG/1 ML VIAL IVPUSH SCH ×2 (02:49→08:31)
[2022-12-31] MEDS: INSULIN (LEVEMIR) 100 UNITS/ML UNITS SQ SCH ×2 (06:18→22:09)
[2022-12-31] MEDS: INSULIN SLIDING SCALE (NOVOLOG) 1 VIAL SQ SCH ×4 (06:19→22:10)
[2022-12-31] MEDS: ALBUTEROL SO4 2.5/IPRATROPIUM 0.5 INH SOL 3 ML VIAL.NEB. NEB SCH ×4 (07:45→20:00)
[2022-12-31] MEDS: LEVOTHYROXINE NA 88 MCG TABLET (FP) PO SCH (08:30)
[2022-12-31 09:12] LABS: HEMATOCRIT 38.7 % (35.4-49); HEMOGLOBIN 13.6 GM/dL (11.7-16.9); MCHC 35.1 g/dl (32.0-35.9); MEAN CELL VOLUME 82.6 fl (80-96); MEAN PLT VOLUME 8.7 fl (7.5-11.1); PLATELET COUNT 228 10^3/uL (134-434); RBC 4.68 M/mm3 (4.00-5.60); RDW 15.2 % (11.9-15.9); WHITE BLOOD COUNT 6.6 K/mm3 (4.0-10.0)
[2022-12-31 09:32] LABS: CALCIUM 9.3 mg/dL (8.5-10.1)
[2022-12-31 09:33] LABS: ALBUMIN 3.6 g/dl (3.4-5.0); BLOOD UREA NITROGEN 22.9 mg/dL (7-18)
[2022-12-31 09:36] LABS: PHOSPHOROUS 4.5 mg/dL (2.5-4.9)
[2022-12-31 09:37] LABS: BILIRUBIN,TOTAL 0.6 mg/dL (0.2-1); TOT PROT 7.6 g/dl (6.4-8.2)
[2022-12-31] MEDS: MULTIVITAMINS (DAILY MVI) TABLET (FP) PO SCH (10:06)
[2022-12-31] MEDS: ENOXAPARIN NA (PORCINE) 40 MG/0.4 ML DISP.SYRIN SQ SCH (10:06)
[2022-12-31] MEDS: SERTRALINE HCL 50 MG TABLET (FP) PO SCH (10:06)
[2022-12-31] MEDS: ASPIRIN COATED 81 MG TABLET.EC PO SCH (10:06)
[2022-12-31] MEDS: LORATADINE 10 MG TABLET PO SCH (10:06)
[2022-12-31] MEDS: DIVALPROEX SODIUM 500 MG TABLET E.C. PO SCH ×2 (10:06→22:05)
[2022-12-31] MEDS: FENOFIBRIC ACID 135 MG CAP PO SCH (10:06)
[2022-12-31] MEDS: HALOPERIDOL 0.5 MG TABLET PO SCH (10:07)
[2022-12-31] MEDS: TOLTERODINE TARTRATE LA 4 MG CAP.SR.24H (FP) PO SCH (10:08)
[2022-12-31] MEDS: CEFTRIAXONE 2 GM in DEXTROSE 5%-WATER 100 ML IVPB SCH (10:08)
[2022-12-31] MEDS: AZITHROMYCIN IVPB 500 MG/250 ML BAG IVPB SCH (10:08)
[2022-12-31] MEDS: predniSONE 10 MG TABLET (UD) PO SCH (13:40)
[2022-12-31] MEDS ORDERED: BENZOCAINE/MENTH/CETYLPYRD CL 1 EACH LOZENGE MM PRN (13:58)
[2022-12-31] MEDS: DESMOPRESSIN ACETATE 0.2 MG TABLET PO SCH (22:05)
[2022-12-31] MEDS: ATORVASTATIN CA 40 MG TABLET (FP) PO SCH (22:05)
[2022-12-31] MEDS: LURASIDONE HCL 40 MG TABLET PO SCH (22:06)
[2023-01-01] MEDS: LEVOTHYROXINE NA 88 MCG TABLET (FP) PO SCH (06:10)
[2023-01-01] MEDS: INSULIN SLIDING SCALE (NOVOLOG) 1 VIAL SQ SCH ×4 (06:10→22:18)
[2023-01-01] MEDS: risperiDONE 1 MG TABLET PO SCH ×2 (06:10→22:21)
[2023-01-01] MEDS: INSULIN (LEVEMIR) 100 UNITS/ML UNITS SQ SCH ×2 (06:10→22:18)
[2023-01-01] MEDS: ALBUTEROL SO4 2.5/IPRATROPIUM 0.5 INH SOL 3 ML VIAL.NEB. NEB SCH ×4 (07:50→20:17)
[2023-01-01 09:22] LABS: BASO % 0.4 % (0-2.0); EOS % 0.5 % (0-4.5); HEMATOCRIT 38.8 % (35.4-49); HEMOGLOBIN 13.4 GM/dL (11.7-16.9); LYMPH % 44.1 % (8-40); MCH 28.7 pg (25.7-33.7); MCHC 34.4 g/dl (32.0-35.9); MEAN CELL VOLUME 83.3 fl (80-96); MEAN PLT VOLUME 8.8 fl (7.5-11.1); MONO % 6.3 % (3.8-10.2); NEUT % 48.7 % (42.8-82.8); PLATELET COUNT 224 10^3/uL (134-434); RBC 4.66 M/mm3 (4.00-5.60); RDW 15.6 % (11.9-15.9)
[2023-01-01 09:41] LABS: BLOOD UREA NITROGEN 25.2 mg/dL (7-18); CALCIUM 8.8 mg/dL (8.5-10.1)
[2023-01-01 09:44] LABS: CREATININE 0.9 mg/dL (0.55-1.3)
[2023-01-01] MEDS: CEFTRIAXONE 2 GM in DEXTROSE 5%-WATER 100 ML IVPB SCH (09:54)
[2023-01-01] MEDS: HALOPERIDOL 0.5 MG TABLET PO SCH (09:58)
[2023-01-01] MEDS: ENOXAPARIN NA (PORCINE) 40 MG/0.4 ML DISP.SYRIN SQ SCH (09:59)
[2023-01-01] MEDS: TOLTERODINE TARTRATE LA 4 MG CAP.SR.24H (FP) PO SCH (09:59)
[2023-01-01] MEDS: SERTRALINE HCL 50 MG TABLET (FP) PO SCH (10:00)
[2023-01-01] MEDS: LORATADINE 10 MG TABLET PO SCH (10:01)
[2023-01-01] MEDS: DIVALPROEX SODIUM 500 MG TABLET E.C. PO SCH ×2 (10:01→22:21)
[2023-01-01] MEDS: MULTIVITAMINS (DAILY MVI) TABLET (FP) PO SCH (10:01)
[2023-01-01] MEDS: guaiFENesin 600 MG TABLET.ER (FP) PO SCH ×2 (10:01→22:22)
[2023-01-01] MEDS: FENOFIBRIC ACID 135 MG CAP PO SCH (10:01)
[2023-01-01] MEDS: ASPIRIN COATED 81 MG TABLET.EC PO SCH (10:01)
[2023-01-01] MEDS: predniSONE 10 MG TABLET (UD) PO SCH (10:05)
[2023-01-01] MEDS: AZITHROMYCIN IVPB 500 MG/250 ML BAG IVPB SCH (10:47)
[2023-01-01] MEDS: ATORVASTATIN CA 40 MG TABLET (FP) PO SCH (22:21)
[2023-01-01] MEDS: DESMOPRESSIN ACETATE 0.2 MG TABLET PO SCH (22:21)
[2023-01-01] MEDS: LURASIDONE HCL 40 MG TABLET PO SCH (22:22)
[2023-01-02] MEDS: INSULIN (LEVEMIR) 100 UNITS/ML UNITS SQ SCH (06:27)
[2023-01-02] MEDS: INSULIN SLIDING SCALE (NOVOLOG) 1 VIAL SQ SCH ×2 (06:27→12:06)
[2023-01-02] MEDS: LEVOTHYROXINE NA 88 MCG TABLET (FP) PO SCH (06:28)
[2023-01-02] MEDS: risperiDONE 1 MG TABLET PO SCH (06:28)
[2023-01-02] MEDS: ALBUTEROL SO4 2.5/IPRATROPIUM 0.5 INH SOL 3 ML VIAL.NEB. NEB SCH ×2 (07:30→11:25)
[2023-01-02 08:23] VITALS: BP 123/73; PULSE 87; TEMP 98
[2023-01-02] MEDS: CEFTRIAXONE 2 GM in DEXTROSE 5%-WATER 100 ML IVPB SCH (10:53)
[2023-01-02] MEDS: DIVALPROEX SODIUM 500 MG TABLET E.C. PO SCH (10:54)
[2023-01-02] MEDS: SERTRALINE HCL 50 MG TABLET (FP) PO SCH (10:54)
[2023-01-02] MEDS: FENOFIBRIC ACID 135 MG CAP PO SCH (10:54)
[2023-01-02] MEDS: MULTIVITAMINS (DAILY MVI) TABLET (FP) PO SCH (10:54)
[2023-01-02] MEDS: LORATADINE 10 MG TABLET PO SCH (10:54)
[2023-01-02] MEDS: HALOPERIDOL 0.5 MG TABLET PO SCH (10:54)
[2023-01-02] MEDS: predniSONE 10 MG TABLET (UD) PO SCH (10:54)
[2023-01-02] MEDS: guaiFENesin 600 MG TABLET.ER (FP) PO SCH (10:54)
[2023-01-02] MEDS: ASPIRIN COATED 81 MG TABLET.EC PO SCH (10:54)
[2023-01-02] MEDS: ENOXAPARIN NA (PORCINE) 40 MG/0.4 ML DISP.SYRIN SQ SCH (10:54)
[2023-01-02] MEDS: TOLTERODINE TARTRATE LA 4 MG CAP.SR.24H (FP) PO SCH (11:22)
[2023-01-02] MEDS: AZITHROMYCIN IVPB 500 MG/250 ML BAG IVPB SCH (12:06)
== END 2023-01-02 15:17 | disposition home or self-care (01) | DRG 194 ==
LOC: JER 19:28 → JERBED 12-29 02:34 → J5S 12-29 03:58
PROVIDERS: ADMIT Internal Medicine
DX: J18.9 Pneumonia, unspecified organism (principal); Z68.41 Body mass index [BMI] 40.0-44.9, adult; E03.9 Hypothyroidism, unspecified; I25.2 Old myocardial infarction; I10 Essential (primary) hypertension; E78.1 Pure hyperglyceridemia; F17.210 Nicotine dependence, cigarettes, uncomplicated; F79 Unspecified intellectual disabilities; R00.0 Tachycardia, unspecified; E66.01 Morbid (severe) obesity due to excess calories; E11.65 Type 2 diabetes mellitus with hyperglycemia; I25.10 Atherosclerotic heart disease of native coronary artery without angina pectoris; F39 Unspecified mood [affective] disorder; G47.33 Obstructive sleep apnea (adult) (pediatric); R13.10 Dysphagia, unspecified; R09.02 Hypoxemia; Z95.5 Presence of coronary angioplasty implant and graft
CPT/HCPCS: 0241U-QW; 36415; 71045-TC-FY; 71250-TC; 74230-TC-FY; 80048; 80053; 81003; 82550; 82553; 82803; 82962; 83605; 83735; 84100; 84439; 84443; 84484; 85025; 85027; 85610; 85730; 86850; 86900; 86901; 87040; 87070; 87086; 87205; 87633; 87899; 92611-GN; 93005; 93010; 93970-TC; 94010; 94640; 99285-25; C9803-CS; U0003; U0005

== ENCOUNTER 2023-02-19 21:49 | Observation (INO) | payer OTHER ==
[2023-02-19] MEDS ORDERED: ACETAMINOPHEN 1000 MG/100 ML BAG IVPB ONE (22:22)
[2023-02-19] MEDS ORDERED: ALBUTEROL SO4 2.5/IPRATROPIUM 0.5 INH SOL 3 ML VIAL.NEB. NEB ONE ×3 (22:22→23:25)
[2023-02-19] MEDS ORDERED: ACETAMINOPHEN INJECTION 100 ML IVPB ONE (22:29)
[2023-02-19] MEDS ORDERED: ASPIRIN 81 MG CHEWABLE TABLETS PO ONE (22:58)
[2023-02-19] MEDS ORDERED: ASPIRIN 81 MG CHEWABLE TABLETS ONE (22:59)
[2023-02-19 23:47] LABS: BASO % 0.6 % (0-2.0); EOS % 1.2 % (0-4.5); HEMATOCRIT 39.1 % (35.4-49); HEMOGLOBIN 13.4 GM/dL (11.7-16.9); LYMPH % 36.6 % (8-40); MCH 28.1 pg (25.7-33.7); MCHC 34.2 g/dl (32.0-35.9); MEAN CELL VOLUME 82.2 fl (80-96); MEAN PLT VOLUME 8.6 fl (7.5-11.1); MONO % 6.2 % (3.8-10.2); NEUT % 55.4 % (42.8-82.8); PLATELET COUNT 222 10^3/uL (134-434); RBC 4.76 M/mm3 (4.00-5.60); RDW 15.5 % (11.9-15.9)
[2023-02-19 23:56] LABS: INR 0.91 (0.83-1.09); PROTHROMBIN TIME (PATIENT) 10.6 SEC (9.7-13.0)
[2023-02-19 23:59] LABS: ACTIVATED PTT 29.9 SECONDS (25.2-36.5)
[2023-02-20 00:07] LABS: POTASSIUM 3.4 mmol/L (3.5-5.1)
[2023-02-20 00:10] LABS: ALBUMIN 3.4 g/dl (3.4-5.0); BLOOD UREA NITROGEN 16.5 mg/dL (7-18)
[2023-02-20] MEDS ORDERED: POTASSIUM CHLORIDE TABS 20 MEQ TABLET.ER (FP) PO ONE ×2 (00:10→00:21)
[2023-02-20 00:13] LABS: CREATININE 0.9 mg/dL (0.55-1.3)
[2023-02-20 00:14] LABS: TOT PROT 6.9 g/dl (6.4-8.2)
[2023-02-20 00:52] LABS: BILIRUBIN,TOTAL 0.3 mg/dL (0.2-1)
[2023-02-20] MEDS ORDERED: POTASSIUM CHLORIDE ORAL LIQUID 20 MEQ/15 ML PO ONE (02:04)
[2023-02-20] MEDS ORDERED: POTASSIUM CHLORIDE ORAL LIQUID 20 MEQ/15 ML ONE (02:40)
[2023-02-20 03:34] LABS: PH,URINE 5.5 (5.0-8.0); URINE APPEARANCE CLEAR; URINE BILIRUBIN NEGATIVE (NEGATIVE); URINE COLOR YELLOW; URINE GLUCOSE (UA) 3+ (NEGATIVE); URINE KETONE NEGATIVE (NEGATIVE); URINE LEUK ESTERASE NEGATIVE (NEGATIVE); URINE NITRITE NEGATIVE (NEGATIVE); URINE PROTEIN NEGATIVE (NEGATIVE); URINE UROBILINOGEN 0.2 mg/dL (0.2-1.0)
[2023-02-20 03:41] LABS: METHADONE, UR NEGATIVE (NEGATIVE)
[2023-02-20 03:42] LABS: COCAINE, UR NEGATIVE (NEGATIVE); OPIATES, URI NEGATIVE (NEGATIVE); PHENCYCLIDINE,URINE NEGATIVE (NEGATIVE); URINE BARBITURATES NEGATIVE (NEGATIVE)
[2023-02-20 03:43] LABS: URINE BENZODIAZEPINES NEGATIVE (NEGATIVE)
[2023-02-20 03:57] LABS: URINE AMPHETAMINES NEGATIVE (NEGATIVE)
[2023-02-20] MEDS ORDERED: LEVOTHYROXINE NA 88 MCG TABLET (FP) ONE (06:35)
[2023-02-20] MEDS ORDERED: risperiDONE 0.5 MG TABLET ONE (06:37)
[2023-02-20] MEDS: risperiDONE 1 MG TABLET PO SCH (06:46)
[2023-02-20] MEDS: LEVOTHYROXINE NA 88 MCG TABLET (FP) PO SCH (06:47)
[2023-02-20] MEDS ORDERED: PATIENT'S OWN MEDICATION (NON-FORMULARY) (Icosapent Ethyl [Vascepa] 1 GM Capsule) PO SCH (07:00)
[2023-02-20 07:58] LABS: HEMATOCRIT 40.7 % (35.4-49); HEMOGLOBIN 13.3 GM/dL (11.7-16.9); MCH 27.6 pg (25.7-33.7); MCHC 32.8 g/dl (32.0-35.9); MEAN CELL VOLUME 84.1 fl (80-96); MEAN PLT VOLUME 8.6 fl (7.5-11.1); PLATELET COUNT 191 10^3/uL (134-434); RBC 4.83 M/mm3 (4.00-5.60); RDW 14.8 % (11.9-15.9); WHITE BLOOD COUNT 7.3 K/mm3 (4.0-10.0)
[2023-02-20 08:06] LABS: POTASSIUM 4.2 mmol/L (3.5-5.1)
[2023-02-20 08:12] LABS: ALBUMIN 3.2 g/dl (3.4-5.0); BLOOD UREA NITROGEN 13.1 mg/dL (7-18); CALCIUM 8.8 mg/dL (8.5-10.1); MAGNESIUM 2.1 mg/dL (1.8-2.4)
[2023-02-20 08:15] LABS: CREATININE 0.8 mg/dL (0.55-1.3)
[2023-02-20 08:16] LABS: BILIRUBIN,TOTAL 0.5 mg/dL (0.2-1); TOT PROT 6.6 g/dl (6.4-8.2)
[2023-02-20 08:17] LABS: URIC ACID 3.8 mg/dL (2.6-7.2)
[2023-02-20 08:19] LABS: PHOSPHOROUS 4.6 mg/dL (2.5-4.9)
[2023-02-20] MEDS: INSULIN SLIDING SCALE (NOVOLOG) 1 VIAL SQ SCH ×4 (09:00→22:05)
[2023-02-20] MEDS ORDERED: LISINOPRIL 5 MG TABLET ONE (09:38)
[2023-02-20] MEDS ORDERED: ASPIRIN COATED 81 MG TABLET.EC ONE (09:38)
[2023-02-20] MEDS ORDERED: DIVALPROEX SODIUM 500 MG TABLET E.C. ONE (09:38)
[2023-02-20] MEDS ORDERED: SERTRALINE HCL 50 MG TABLET (FP) ONE (09:39)
[2023-02-20] MEDS ORDERED: LORATADINE 10 MG TABLET ONE ×2 (09:39)
[2023-02-20] MEDS ORDERED: INSULIN (LEVEMIR) 100 UNITS/ML UNITS SQ ONE (09:39)
[2023-02-20] MEDS ORDERED: ENOXAPARIN NA (PORCINE) 40 MG/0.4 ML DISP.SYRIN SQ ONE (09:44)
[2023-02-20] MEDS ORDERED: PATIENT'S OWN MEDICATION (NON-FORMULARY) (Empagliflozin 25 MG Tablet) PO SCH (10:00)
[2023-02-20] MEDS: SERTRALINE HCL 50 MG TABLET (FP) PO SCH (10:50)
[2023-02-20] MEDS: TOLTERODINE TARTRATE LA 4 MG CAP.SR.24H (FP) PO SCH (10:50)
[2023-02-20] MEDS: LISINOPRIL 5 MG TABLET PO SCH (10:50)
[2023-02-20] MEDS: LORATADINE 10 MG TABLET PO SCH (10:59)
[2023-02-20] MEDS: DIVALPROEX SODIUM 500 MG TABLET E.C. PO SCH ×2 (10:59→22:37)
[2023-02-20] MEDS: ENOXAPARIN NA (PORCINE) 40 MG/0.4 ML DISP.SYRIN SQ SCH ×2 (11:00→22:03)
[2023-02-20] MEDS: ASPIRIN COATED 81 MG TABLET.EC PO SCH (11:00)
[2023-02-20] MEDS: INSULIN (LEVEMIR) 100 UNITS/ML UNITS SQ SCH ×2 (11:00→22:03)
[2023-02-20] MEDS ORDERED: INSULIN (NOVOLOG) ASPART 100 UNITS/ML 10ML VIAL ONE ×2 (11:38→21:53)
[2023-02-20] MEDS: HALOPERIDOL 0.5 MG TABLET PO SCH (11:46)
[2023-02-20 13:11] VITALS: BMI 50.1
[2023-02-20] MEDS: FENOFIBRIC ACID 135 MG CAP PO SCH (16:47)
[2023-02-20] MEDS ORDERED: NAPROXEN 500 MG TABLET PO PRN (17:08)
[2023-02-20] MEDS ORDERED: LURASIDONE HCL 20 MG TABLET PO SCH (22:00)
[2023-02-20] MEDS ORDERED: risperiDONE 1 MG TABLET PO SCH (22:00)
[2023-02-20] MEDS ORDERED: ATORVASTATIN CA 40 MG TABLET (FP) PO SCH (22:00)
[2023-02-20] MEDS ORDERED: DESMOPRESSIN ACETATE 0.2 MG TABLET PO SCH (22:00)
[2023-02-21 05:49] VITALS: RESP 18
[2023-02-21] MEDS ORDERED: INSULIN (NOVOLOG) ASPART 100 UNITS/ML 10ML VIAL ONE ×2 (06:04→11:34)
[2023-02-21] MEDS: LEVOTHYROXINE NA 88 MCG TABLET (FP) PO SCH (06:13)
[2023-02-21] MEDS: risperiDONE 1 MG TABLET PO SCH (06:13)
[2023-02-21] MEDS: INSULIN SLIDING SCALE (NOVOLOG) 1 VIAL SQ SCH ×2 (06:14→11:55)
[2023-02-21 07:45] LABS: CHOLESTEROL 159 mg/dL (50-200)
[2023-02-21 07:46] LABS: LDL CHOLESTEROL (ONLY SJRH) 85 mg/dL (5-100)
[2023-02-21 07:48] LABS: HDL CHOLESTEROL 27 mg/dL (40-60)
[2023-02-21 09:55] VITALS: BP 106/69; PULSE 99; TEMP 97.7
[2023-02-21] MEDS: SERTRALINE HCL 50 MG TABLET (FP) PO SCH (09:57)
[2023-02-21] MEDS: ASPIRIN COATED 81 MG TABLET.EC PO SCH (09:57)
[2023-02-21] MEDS: LORATADINE 10 MG TABLET PO SCH (09:57)
[2023-02-21] MEDS: LISINOPRIL 5 MG TABLET PO SCH (09:57)
[2023-02-21] MEDS: ENOXAPARIN NA (PORCINE) 40 MG/0.4 ML DISP.SYRIN SQ SCH ×2 (09:57→10:05)
[2023-02-21] MEDS: TOLTERODINE TARTRATE LA 4 MG CAP.SR.24H (FP) PO SCH (09:58)
[2023-02-21] MEDS: HALOPERIDOL 0.5 MG TABLET PO SCH (09:58)
[2023-02-21] MEDS: FENOFIBRIC ACID 135 MG CAP PO SCH (09:58)
[2023-02-21] MEDS: INSULIN (LEVEMIR) 100 UNITS/ML UNITS SQ SCH (09:59)
[2023-02-21] MEDS: DIVALPROEX SODIUM 500 MG TABLET E.C. PO SCH (11:48)
== END 2023-02-21 13:11 | disposition home or self-care (01) ==
LOC: JER 21:49 → UNDOADMOB 02-20 00:58 → JERBED 02-20 00:58 → OBSVTOIN 02-20 01:53 → INTOOBSV 02-20 01:53 → JERBED 02-20 08:21 → J4W 02-20 11:02
PROVIDERS: ADMIT Internal Medicine; ATTEND Internal Medicine
PROC: 3E033NZ Introduction of Analgesics, Hypnotics, Sedatives into Peripheral Vein, Percutaneous Approach (ICD-10-PCS; principal; 2023-02-20)
PROC: 3E013VG Introduction of Insulin into Subcutaneous Tissue, Percutaneous Approach (ICD-10-PCS; 2023-02-20)
PROC: 3E0F7SF Introduction of Other Gas into Respiratory Tract, Via Natural or Artificial Opening (ICD-10-PCS; 2023-02-20)
DX: R07.89 Other chest pain (principal); I10 Essential (primary) hypertension; I25.10 Atherosclerotic heart disease of native coronary artery without angina pectoris; E11.9 Type 2 diabetes mellitus without complications; E78.5 Hyperlipidemia, unspecified; E03.9 Hypothyroidism, unspecified; F79 Unspecified intellectual disabilities; E66.01 Morbid (severe) obesity due to excess calories; Z68.43 Body mass index [BMI] 50.0-59.9, adult; Z95.5 Presence of coronary angioplasty implant and graft; Z79.4 Long term (current) use of insulin; Z87.891 Personal history of nicotine dependence; Z79.899 Other long term (current) drug therapy; F12.90 Cannabis use, unspecified, uncomplicated; E78.1 Pure hyperglyceridemia; F17.200 Nicotine dependence, unspecified, uncomplicated
CPT/HCPCS: 0241U-QW; 36415; 71045-TC-FY; 73610-TC-LT-FY; 73630-TC-LT; 80053; 80061; 80307; 81003; 82962; 83735; 84100; 84484; 84550; 85025; 85027; 85610; 85730; 93005; 93010; 94640; 96372; 96374; 99285-25; G0378

== ENCOUNTER 2023-03-06 16:36 | Emergency (ER) | payer OTHER ==
[2023-03-06 16:41] VITALS: BP 123/81; PULSE 105; RESP 18; TEMP 97; BMI 48.0
[2023-03-06] MEDS ORDERED: ACETAMINOPHEN 500 MG TABLET (FP) PO ONE (18:02)
[2023-03-06] MEDS ORDERED: DIPHTH,PERTUSS(ACELL),TET 0.5 ML DISP.SYRIN IM ONE ×2 (18:02→18:06)
[2023-03-06] MEDS ORDERED: ACETAMINOPHEN 500 MG TABLET (FP) ONE (18:06)
[2023-03-06] MEDS ORDERED: PIPERACILLIN/TAZOB 4.5 GM 4.5 GM in DEXTROSE 5%-WATER 100 ML IVPB ONE (18:14)
[2023-03-06] MEDS ORDERED: VANCOMYCIN 1 GM in D5W (PRE-DOCKED) 1,000 MG/250 ML (RESTRICTED TO ID ONLY IVPB ONE (18:15)
[2023-03-06 18:44] LABS: BASO % 1.6 % (0-2.0); EOS % 1.1 % (0-4.5); HEMATOCRIT 42.5 % (35.4-49); HEMOGLOBIN 14.5 GM/dL (11.7-16.9); LYMPH % 33.5 % (8-40); MCH 28.3 pg (25.7-33.7); MCHC 34.2 g/dl (32.0-35.9); MEAN CELL VOLUME 82.7 fl (80-96); MEAN PLT VOLUME 8.3 fl (7.5-11.1); MONO % 5.8 % (3.8-10.2); PLATELET COUNT 248 10^3/uL (134-434); RBC 5.14 M/mm3 (4.00-5.60); RDW 15.4 % (11.9-15.9); WHITE BLOOD COUNT 10.2 K/mm3 (4.0-10.0)
[2023-03-06] MEDS ORDERED: PIPERACILLIN/TAZOB 4.5 GM 4.5 GM/100 ML BAG IVPB ONE (18:55)
[2023-03-06 19:02] LABS: POTASSIUM 4.4 mmol/L (3.5-5.1)
[2023-03-06 19:04] LABS: BLOOD UREA NITROGEN 22.1 mg/dL (7-18); CALCIUM 8.8 mg/dL (8.5-10.1)
[2023-03-06 19:07] LABS: BILIRUBIN,DIRECT 0.1 mg/dL (0.0-0.2)
[2023-03-06] MEDS ORDERED: VANCOMYCIN/WATER FOR INJ (PEG) 1,000 MG/200 ML BAG IVPB ONE (19:08)
[2023-03-06 19:09] LABS: BILIRUBIN,TOTAL 0.6 mg/dL (0.2-1)
== END 2023-03-06 23:54 | disposition home or self-care (01) ==
LOC: JERFT 16:36 → JER 16:36
PROC: 3E03329 Introduction of Other Anti-infective into Peripheral Vein, Percutaneous Approach (ICD-10-PCS; principal; 2023-03-06)
PROC: 3E03329 Introduction of Other Anti-infective into Peripheral Vein, Percutaneous Approach (ICD-10-PCS; 2023-03-06)
PROC: 3E0234Z Introduction of Serum, Toxoid and Vaccine into Muscle, Percutaneous Approach (ICD-10-PCS; 2023-03-06)
DX: M54.6 Pain in thoracic spine (principal); M79.671 Pain in right foot; S91.331A Puncture wound without foreign body, right foot, initial encounter; W45.0XXA Nail entering through skin, initial encounter
CPT/HCPCS: 36415; 73701-TC-RT; 80048; 80076; 85025; 90471; 90715; 96365; 96375; 99285-25

== ENCOUNTER 2023-05-09 19:55 | Observation (INO) | payer OTHER ==
[2023-05-09] MEDS ORDERED: ACETAMINOPHEN 500 MG TABLET (FP) PO ONE (20:29)
[2023-05-09] MEDS ORDERED: ACETAMINOPHEN 500 MG TABLET (FP) ONE (20:32)
[2023-05-09 21:35] LABS: HEMATOCRIT 42.9 % (35.4-49); HEMOGLOBIN 14.9 GM/dL (11.7-16.9); LYMPH % 34.6 % (8-40); MCHC 34.7 g/dl (32.0-35.9); MEAN CELL VOLUME 80.8 fl (80-96); MEAN PLT VOLUME 8.1 fl (7.5-11.1); MONO % 6.4 % (3.8-10.2); PLATELET COUNT 227 10^3/uL (134-434); RDW 15.4 % (11.9-15.9); WHITE BLOOD COUNT 10.1 K/mm3 (4.0-10.0)
[2023-05-09 21:46] LABS: POTASSIUM 4.8 mmol/L (3.5-5.1)
[2023-05-09 21:47] LABS: ALBUMIN 3.7 g/dl (3.4-5.0); BLOOD UREA NITROGEN 17.4 mg/dL (7-18)
[2023-05-09 21:51] LABS: CREATININE 1.1 mg/dL (0.55-1.3)
[2023-05-09 21:53] LABS: BILIRUBIN,TOTAL 0.5 mg/dL (0.2-1); TOT PROT 7.6 g/dl (6.4-8.2)
[2023-05-09 22:08] LABS: N-TERMINAL BNP 37.7 pg/ml (5-125)
[2023-05-09] MEDS ORDERED: ASPIRIN 81 MG CHEWABLE TABLETS PO ONE (22:50)
[2023-05-09] MEDS ORDERED: ASPIRIN 81 MG CHEWABLE TABLETS ONE (23:31)
[2023-05-10 02:04] VITALS: BMI 46.7
[2023-05-10] MEDS ORDERED: INSULIN (NOVOLOG) ASPART 100 UNITS/ML 10ML VIAL ONE ×2 (06:10→22:32)
[2023-05-10] MEDS: INSULIN SLIDING SCALE (NOVOLOG) 1 VIAL SQ SCH ×4 (06:11→22:37)
[2023-05-10 07:50] LABS: HEMOGLOBIN 14.1 GM/dL (11.7-16.9); MCH 27.7 pg (25.7-33.7); MCHC 33.5 g/dl (32.0-35.9); MEAN CELL VOLUME 82.6 fl (80-96); MEAN PLT VOLUME 8.6 fl (7.5-11.1); PLATELET COUNT 207 10^3/uL (134-434); RBC 5.09 M/mm3 (4.00-5.60); RDW 15.2 % (11.9-15.9)
[2023-05-10 07:57] LABS: ALBUMIN 3.6 g/dl (3.4-5.0); BLOOD UREA NITROGEN 17.4 mg/dL (7-18)
[2023-05-10 08:01] LABS: CREATININE 0.8 mg/dL (0.55-1.3)
[2023-05-10 08:02] LABS: BILIRUBIN,TOTAL 0.3 mg/dL (0.2-1); TOT PROT 7.2 g/dl (6.4-8.2)
[2023-05-10] MEDS: ENOXAPARIN NA (PORCINE) 40 MG/0.4 ML DISP.SYRIN SQ SCH (09:04)
[2023-05-10] MEDS: metoPROLOL SUCCINATE 25 MG TAB.SR.24H (FP) PO SCH (14:51)
[2023-05-10] MEDS ORDERED: ASPIRIN COATED 81 MG TABLET.EC PO SCH (22:00)
[2023-05-10] MEDS: OMEGA-3 ACID ETHYL ESTERS (FATTY-ACIDS) 1 GM CAPSULE (FP) PO SCH (22:37)
[2023-05-10] MEDS: ATORVASTATIN CA 40 MG TABLET (FP) PO SCH (22:37)
[2023-05-10] MEDS: DIVALPROEX SODIUM 500 MG TABLET E.C. PO SCH (23:55)
[2023-05-10] MEDS: DESMOPRESSIN ACETATE 0.2 MG TABLET PO SCH (23:56)
[2023-05-11] MEDS ORDERED: INSULIN (NOVOLOG) ASPART 100 UNITS/ML 10ML VIAL ONE ×2 (06:10→11:17)
[2023-05-11] MEDS: INSULIN SLIDING SCALE (NOVOLOG) 1 VIAL SQ SCH ×4 (06:24→22:07)
[2023-05-11] MEDS: LEVOTHYROXINE NA 88 MCG TABLET (FP) PO SCH (06:24)
[2023-05-11 07:51] LABS: BASO % 0.4 % (0-2.0); EOS % 1.1 % (0-4.5); HEMATOCRIT 42.9 % (35.4-49); LYMPH % 33.8 % (8-40); MCH 26.9 pg (25.7-33.7); MCHC 32.6 g/dl (32.0-35.9); MEAN CELL VOLUME 82.5 fl (80-96); MEAN PLT VOLUME 8.7 fl (7.5-11.1); MONO % 6.7 % (3.8-10.2); PLATELET COUNT 211 10^3/uL (134-434); RDW 15.3 % (11.9-15.9); WHITE BLOOD COUNT 8.3 K/mm3 (4.0-10.0)
[2023-05-11 08:12] LABS: POTASSIUM 4.1 mmol/L (3.5-5.1)
[2023-05-11 08:22] LABS: TOT PROT 7.2 g/dl (6.4-8.2)
[2023-05-11 08:23] LABS: BILIRUBIN,TOTAL 0.5 mg/dL (0.2-1)
[2023-05-11 08:26] LABS: ALBUMIN 3.6 g/dl (3.4-5.0); BLOOD UREA NITROGEN 17.3 mg/dL (7-18); CALCIUM 8.7 mg/dL (8.5-10.1)
[2023-05-11 08:29] LABS: CREATININE 0.8 mg/dL (0.55-1.3)
[2023-05-11] MEDS: metoPROLOL SUCCINATE 25 MG TAB.SR.24H (FP) PO SCH (09:47)
[2023-05-11] MEDS: FENOFIBRIC ACID 135 MG CAP PO SCH (09:48)
[2023-05-11] MEDS: ASPIRIN COATED 81 MG TABLET.EC PO SCH (09:48)
[2023-05-11] MEDS: DIVALPROEX SODIUM 500 MG TABLET E.C. PO SCH ×2 (09:48→22:02)
[2023-05-11] MEDS: OMEGA-3 ACID ETHYL ESTERS (FATTY-ACIDS) 1 GM CAPSULE (FP) PO SCH ×2 (09:48→22:02)
[2023-05-11] MEDS: ENOXAPARIN NA (PORCINE) 40 MG/0.4 ML DISP.SYRIN SQ SCH (09:49)
[2023-05-11] MEDS: LISINOPRIL 5 MG TABLET PO SCH (09:50)
[2023-05-11 15:26] LABS: URINE APPEARANCE CLEAR; URINE BILIRUBIN NEGATIVE (NEGATIVE); URINE COLOR YELLOW; URINE GLUCOSE (UA) 3+ (NEGATIVE); URINE KETONE TRACE (NEGATIVE); URINE LEUK ESTERASE NEGATIVE (NEGATIVE); URINE NITRITE NEGATIVE (NEGATIVE); URINE PROTEIN NEGATIVE (NEGATIVE); URINE UROBILINOGEN 0.2 mg/dL (0.2-1.0)
[2023-05-11 15:37] LABS: OPIATES, URI NEGATIVE (NEGATIVE); PHENCYCLIDINE,URINE NEGATIVE (NEGATIVE); URINE BARBITURATES NEGATIVE (NEGATIVE); URINE BENZODIAZEPINES NEGATIVE (NEGATIVE)
[2023-05-11 15:42] LABS: COCAINE, UR NEGATIVE (NEGATIVE); METHADONE, UR NEGATIVE (NEGATIVE); URINE AMPHETAMINES NEGATIVE (NEGATIVE)
[2023-05-11] MEDS: DESMOPRESSIN ACETATE 0.2 MG TABLET PO SCH (22:01)
[2023-05-11] MEDS: ATORVASTATIN CA 40 MG TABLET (FP) PO SCH (22:02)
[2023-05-12] MEDS: INSULIN SLIDING SCALE (NOVOLOG) 1 VIAL SQ SCH ×6 (06:30→21:08)
[2023-05-12] MEDS: LEVOTHYROXINE NA 88 MCG TABLET (FP) PO SCH (06:30)
[2023-05-12 07:09] LABS: HEMATOCRIT 42.9 % (35.4-49); HEMOGLOBIN 14.7 GM/dL (11.7-16.9); MCH 27.8 pg (25.7-33.7); MCHC 34.2 g/dl (32.0-35.9); MEAN CELL VOLUME 81.3 fl (80-96); MEAN PLT VOLUME 8.3 fl (7.5-11.1); PLATELET COUNT 213 10^3/uL (134-434); RBC 5.27 M/mm3 (4.00-5.60); RDW 15.8 % (11.9-15.9); WHITE BLOOD COUNT 9.1 K/mm3 (4.0-10.0)
[2023-05-12 07:46] LABS: POTASSIUM 4.3 mmol/L (3.5-5.1)
[2023-05-12 07:53] LABS: ALBUMIN 3.5 g/dl (3.4-5.0); BLOOD UREA NITROGEN 19.5 mg/dL (7-18); CALCIUM 8.5 mg/dL (8.5-10.1); MAGNESIUM 2.1 mg/dL (1.8-2.4)
[2023-05-12 07:56] LABS: CREATININE 0.8 mg/dL (0.55-1.3)
[2023-05-12 07:58] LABS: BILIRUBIN,TOTAL 0.5 mg/dL (0.2-1); TOT PROT 7.2 g/dl (6.4-8.2)
[2023-05-12 08:00] LABS: PHOSPHOROUS 3.7 mg/dL (2.5-4.9)
[2023-05-12] MEDS ORDERED: REGADENOSON 0.4 MG/5 ML PRE-FILLED SYRINGE IVPUSH ONE ×2 (09:20→09:45)
[2023-05-12] MEDS ORDERED: INSULIN SLIDING SCALE (NOVOLOG) 1 VIAL SQ SCH (09:45)
[2023-05-12] MEDS: OMEGA-3 ACID ETHYL ESTERS (FATTY-ACIDS) 1 GM CAPSULE (FP) PO SCH ×2 (10:51→21:07)
[2023-05-12] MEDS: metoPROLOL SUCCINATE 25 MG TAB.SR.24H (FP) PO SCH (10:52)
[2023-05-12] MEDS: LISINOPRIL 5 MG TABLET PO SCH (10:52)
[2023-05-12] MEDS: DIVALPROEX SODIUM 500 MG TABLET E.C. PO SCH ×2 (10:52→21:07)
[2023-05-12] MEDS: ASPIRIN COATED 81 MG TABLET.EC PO SCH (10:52)
[2023-05-12] MEDS: FENOFIBRIC ACID 135 MG CAP PO SCH (10:52)
[2023-05-12] MEDS: ENOXAPARIN NA (PORCINE) 40 MG/0.4 ML DISP.SYRIN SQ SCH ×2 (10:53→11:03)
[2023-05-12] MEDS ORDERED: INSULIN (NOVOLOG) ASPART 100 UNITS/ML 10ML VIAL ONE ×3 (11:01→18:20)
[2023-05-12] MEDS: LIPASE/PROTEASE/AMYLASE 36,000 UNIT CAPSULE PO SCH ×2 (11:54→17:15)
[2023-05-12] MEDS ORDERED: POLYETHYLENE GLYCOL (HEALTHYLAX) 3350 17 GM PACKET PO PRN (17:04)
[2023-05-12] MEDS: DESMOPRESSIN ACETATE 0.2 MG TABLET PO SCH (21:06)
[2023-05-12] MEDS: ATORVASTATIN CA 40 MG TABLET (FP) PO SCH (21:07)
[2023-05-13] MEDS: INSULIN SLIDING SCALE (NOVOLOG) 1 VIAL SQ SCH ×6 (03:10→22:44)
[2023-05-13] MEDS: LEVOTHYROXINE NA 88 MCG TABLET (FP) PO SCH (06:18)
[2023-05-13] MEDS: LIPASE/PROTEASE/AMYLASE 36,000 UNIT CAPSULE PO SCH (08:30)
[2023-05-13] MEDS ORDERED: INSULIN (NOVOLOG) ASPART 100 UNITS/ML 10ML VIAL ONE ×4 (09:09→21:30)
[2023-05-13] MEDS: LIPASE/PROTEASE/AMYLASE 1 CAP, LIPASE/PROTEASE/AMYLASE 2 CAP PO SCH ×3 (09:11→17:30)
[2023-05-13] MEDS: OMEGA-3 ACID ETHYL ESTERS (FATTY-ACIDS) 1 GM CAPSULE (FP) PO SCH ×2 (09:26→22:41)
[2023-05-13] MEDS: ASPIRIN COATED 81 MG TABLET.EC PO SCH (09:26)
[2023-05-13] MEDS: FENOFIBRIC ACID 135 MG CAP PO SCH (09:26)
[2023-05-13] MEDS: LISINOPRIL 5 MG TABLET PO SCH (09:26)
[2023-05-13] MEDS: DIVALPROEX SODIUM 500 MG TABLET E.C. PO SCH ×2 (09:27→22:41)
[2023-05-13] MEDS: metoPROLOL SUCCINATE 25 MG TAB.SR.24H (FP) PO SCH (09:27)
[2023-05-13] MEDS: ENOXAPARIN NA (PORCINE) 40 MG/0.4 ML DISP.SYRIN SQ SCH (09:27)
[2023-05-13] MEDS: ATORVASTATIN CA 40 MG TABLET (FP) PO SCH (22:41)
[2023-05-13] MEDS: DESMOPRESSIN ACETATE 0.2 MG TABLET PO SCH (22:42)
[2023-05-14] MEDS: INSULIN SLIDING SCALE (NOVOLOG) 1 VIAL SQ SCH ×3 (03:07→09:22)
[2023-05-14] MEDS: LEVOTHYROXINE NA 88 MCG TABLET (FP) PO SCH (06:14)
[2023-05-14 08:33] LABS: HEMATOCRIT 42.7 % (35.4-49); HEMOGLOBIN 14.8 GM/dL (11.7-16.9); MCH 27.8 pg (25.7-33.7); MCHC 34.6 g/dl (32.0-35.9); MEAN CELL VOLUME 80.4 fl (80-96); MEAN PLT VOLUME 8.6 fl (7.5-11.1); PLATELET COUNT 200 10^3/uL (134-434); RBC 5.31 M/mm3 (4.00-5.60); RDW 15.6 % (11.9-15.9); WHITE BLOOD COUNT 7.3 K/mm3 (4.0-10.0)
[2023-05-14] MEDS: LIPASE/PROTEASE/AMYLASE 1 CAP, LIPASE/PROTEASE/AMYLASE 2 CAP PO SCH (08:47)
[2023-05-14 08:49] LABS: POTASSIUM 4.2 mmol/L (3.5-5.1)
[2023-05-14 08:59] LABS: CALCIUM 8.5 mg/dL (8.5-10.1)
[2023-05-14 09:01] LABS: ALBUMIN 3.5 g/dl (3.4-5.0)
[2023-05-14 09:03] LABS: CREATININE 0.8 mg/dL (0.55-1.3)
[2023-05-14 09:04] LABS: BILIRUBIN,TOTAL 0.5 mg/dL (0.2-1); TOT PROT 7.2 g/dl (6.4-8.2)
[2023-05-14] MEDS: ENOXAPARIN NA (PORCINE) 40 MG/0.4 ML DISP.SYRIN SQ SCH (09:06)
[2023-05-14] MEDS: OMEGA-3 ACID ETHYL ESTERS (FATTY-ACIDS) 1 GM CAPSULE (FP) PO SCH (09:06)
[2023-05-14] MEDS: FENOFIBRIC ACID 135 MG CAP PO SCH (09:07)
[2023-05-14] MEDS: metoPROLOL SUCCINATE 25 MG TAB.SR.24H (FP) PO SCH (09:07)
[2023-05-14] MEDS: LISINOPRIL 5 MG TABLET PO SCH (09:07)
[2023-05-14] MEDS: ASPIRIN COATED 81 MG TABLET.EC PO SCH (09:07)
[2023-05-14] MEDS: DIVALPROEX SODIUM 500 MG TABLET E.C. PO SCH (09:08)
[2023-05-14] MEDS ORDERED: INSULIN (NOVOLOG) ASPART 100 UNITS/ML 10ML VIAL ONE (09:20)
[2023-05-14 11:55] VITALS: BP 139/92; PULSE 91; RESP 18; TEMP 98.3
== END 2023-05-14 12:20 | disposition home or self-care (01) ==
LOC: JER 19:55 → JERFT 19:55 → JERBED 22:13 → J4W 05-10 02:39
PROVIDERS: ADMIT Internal Medicine; ATTEND Internal Medicine
PROC: 3E023GC Introduction of Other Therapeutic Substance into Muscle, Percutaneous Approach (ICD-10-PCS; principal; 2023-05-09)
PROC: 3E013VG Introduction of Insulin into Subcutaneous Tissue, Percutaneous Approach (ICD-10-PCS; 2023-05-09)
PROC: 3E033GC Introduction of Other Therapeutic Substance into Peripheral Vein, Percutaneous Approach (ICD-10-PCS; 2023-05-09)
DX: R07.89 Other chest pain (principal); E78.1 Pure hyperglyceridemia; R62.50 Unspecified lack of expected normal physiological development in childhood; E78.5 Hyperlipidemia, unspecified; I25.10 Atherosclerotic heart disease of native coronary artery without angina pectoris; I11.9 Hypertensive heart disease without heart failure; E11.9 Type 2 diabetes mellitus without complications; R07.0 Pain in throat; R05.9 Cough, unspecified; Z88.8 Allergy status to other drugs, medicaments and biological substances; E03.9 Hypothyroidism, unspecified; Z87.891 Personal history of nicotine dependence
CPT/HCPCS: 0241U-QW; 36415; 71046-TC-FY; 78452-TC; 80053; 80061; 80307; 81003; 82728; 82962; 83615; 83690; 83735; 83880; 84100; 84443; 84478; 84484; 85025; 85027; 86140; 87086; 87635; 93005; 93010; 93017; 96372; 96374; 99285-25; A9502; G0378; J2785

== ENCOUNTER 2023-08-24 20:12 | Emergency (ER) | payer OTHER ==
[2023-08-24 20:28] VITALS: BMI 45.1
[2023-08-24] MEDS ORDERED: ACETAMINOPHEN 1000 MG/100 ML BAG IVPB ONE (21:21)
[2023-08-24] MEDS ORDERED: ACETAMINOPHEN INJECTION 100 ML IVPB ONE (22:11)
[2023-08-24 22:15] LABS: EOS % 1.2 % (0-4.5); HEMATOCRIT 42.6 % (35.4-49); HEMOGLOBIN 14.4 GM/dL (11.7-16.9); LYMPH % 35.8 % (8-40); MCH 27.8 pg (25.7-33.7); MCHC 33.8 g/dl (32.0-35.9); MEAN CELL VOLUME 82.5 fl (80-96); MEAN PLT VOLUME 8.4 fl (7.5-11.1); MONO % 5.4 % (3.8-10.2); NEUT % 56.6 % (42.8-82.8); PLATELET COUNT 217 10^3/uL (134-434); RBC 5.17 M/mm3 (4.00-5.60); RDW 15.4 % (11.9-15.9)
[2023-08-24 22:23] LABS: INR 0.97 (0.83-1.09); PROTHROMBIN TIME (PATIENT) 11.2 SEC (9.7-13.0)
[2023-08-24 22:26] LABS: ACTIVATED PTT 30.3 SECONDS (25.2-36.5)
[2023-08-24 22:35] LABS: CALCIUM 8.5 mg/dL (8.5-10.1)
[2023-08-24 22:36] LABS: ALBUMIN 3.5 g/dl (3.4-5.0); BLOOD UREA NITROGEN 14.7 mg/dL (7-18); MAGNESIUM 2.2 mg/dL (1.8-2.4)
[2023-08-24 22:39] LABS: CREATININE 0.9 mg/dL (0.55-1.3)
[2023-08-24 22:40] LABS: TOT PROT 7.1 g/dl (6.4-8.2)
[2023-08-24 22:41] LABS: BILIRUBIN,TOTAL 0.3 mg/dL (0.2-1)
[2023-08-25 06:31] VITALS: TEMP 97.6
[2023-08-25 08:34] VITALS: BP 113/75; PULSE 60; RESP 16
== END 2023-08-25 08:35 | disposition home or self-care (01) ==
LOC: JER 20:12
PROC: 3E033NZ Introduction of Analgesics, Hypnotics, Sedatives into Peripheral Vein, Percutaneous Approach (ICD-10-PCS; principal; 2023-08-24)
DX: R07.9 Chest pain, unspecified (principal); R05.9 Cough, unspecified; R00.0 Tachycardia, unspecified; B97.4 Respiratory syncytial virus as the cause of diseases classified elsewhere; Z20.822 Contact with and (suspected) exposure to COVID-19
CPT/HCPCS: 0241U-QW; 36415; 71045-TC-FY; 80053; 82550; 82553; 83735; 84484; 85025; 85610; 85730; 93005; 93010; 96374; 99285-25

== ENCOUNTER 2023-09-11 10:13 | Observation (INO) | payer OTHER ==
[2023-09-11] MEDS ORDERED: ALBUTEROL SO4 2.5/IPRATROPIUM 0.5 INH SOL 3 ML VIAL.NEB. NEB ONE ×3 (11:33→22:09)
[2023-09-11] MEDS ORDERED: LACTATED RINGERS SOLUTION 1000 ML INFUS.BAG IV ONE ×2 (12:02→14:43)
[2023-09-11] MEDS ORDERED: ACETAMINOPHEN 1000 MG/100 ML BAG IVPB ONE (12:03)
[2023-09-11] MEDS ORDERED: ACETAMINOPHEN INJECTION 100 ML IVPB ONE (12:12)
[2023-09-11 12:23] LABS: BASO % 0.6 % (0-2.0); EOS % 1.6 % (0-4.5); HEMATOCRIT 45.6 % (35.4-49); HEMOGLOBIN 15.4 GM/dL (11.7-16.9); LYMPH % 17.2 % (8-40); MCH 27.8 pg (25.7-33.7); MCHC 33.8 g/dl (32.0-35.9); MEAN CELL VOLUME 82.3 fl (80-96); MEAN PLT VOLUME 8.8 fl (7.5-11.1); MONO % 10.6 % (3.8-10.2); PLATELET COUNT 238 10^3/uL (134-434); RBC 5.54 M/mm3 (4.00-5.60); RDW 16.1 % (11.9-15.9); WHITE BLOOD COUNT 8.7 K/mm3 (4.0-10.0)
[2023-09-11 12:55] LABS: POTASSIUM 4.6 mmol/L (3.5-5.1)
[2023-09-11 12:56] LABS: ALBUMIN 3.8 g/dl (3.4-5.0); CALCIUM 10.1 mg/dL (8.5-10.1)
[2023-09-11 12:58] LABS: BLOOD UREA NITROGEN 11.3 mg/dL (7-18)
[2023-09-11 13:00] LABS: CREATININE 0.9 mg/dL (0.55-1.3)
[2023-09-11 13:02] LABS: BILIRUBIN,TOTAL 0.8 mg/dL (0.2-1); TOT PROT 7.9 g/dl (6.4-8.2)
[2023-09-11] MEDS ORDERED: ALBUTEROL SO4 2.5/IPRATROPIUM 0.5 INH SOL 3 ML VIAL.NEB. NEB PRN (21:38)
[2023-09-11] MEDS ORDERED: REMDESIVIR 200 MG in SODIUM CHLORIDE 250 ML IVPB ONE (22:00)
[2023-09-11] MEDS ORDERED: ENOXAPARIN NA (PORCINE) 40 MG/0.4 ML DISP.SYRIN SQ ONE (22:09)
[2023-09-11] MEDS ORDERED: methylPREDNISolone NA SUCC 40 MG/1 ML VIAL ONE (22:10)
[2023-09-11] MEDS: ALBUTEROL SO4 2.5/IPRATROPIUM 0.5 INH SOL 3 ML VIAL.NEB. NEB SCH (22:19)
[2023-09-11] MEDS: INSULIN ASPART SLIDING SCALE (NOVOLOG) 1 VIAL SQ SCH (22:20)
[2023-09-11] MEDS: methylPREDNISolone NA SUCC 40 MG/1 ML VIAL IVPUSH SCH (22:20)
[2023-09-11] MEDS: ENOXAPARIN NA (PORCINE) 40 MG/0.4 ML DISP.SYRIN SQ SCH (22:20)
[2023-09-12] MEDS ORDERED: DIVALPROEX NA *ER* EXTEND REL 500 MG TABLET.SA (FP) PO ONE (02:19)
[2023-09-12] MEDS ORDERED: TOPIRAMATE 25 MG TABLET PO ONE (02:21)
[2023-09-12] MEDS ORDERED: risperiDONE 1 MG TABLET PO ONE (02:22)
[2023-09-12] MEDS: LACTATED RINGERS SOLUTION 1,000 ML/1,000 ML INFUS.BAG IV SCH ×2 (04:56→23:38)
[2023-09-12] MEDS ORDERED: risperiDONE 0.5 MG TABLET ONE ×3 (06:07→07:45)
[2023-09-12] MEDS ORDERED: TOPIRAMATE 25 MG TABLET ONE (06:07)
[2023-09-12] MEDS ORDERED: DIVALPROEX SODIUM 500 MG TABLET E.C. ONE (06:07)
[2023-09-12] MEDS: ALBUTEROL SO4 2.5/IPRATROPIUM 0.5 INH SOL 3 ML VIAL.NEB. NEB SCH ×3 (06:13→16:38)
[2023-09-12] MEDS ORDERED: ALBUTEROL SO4 2.5/IPRATROPIUM 0.5 INH SOL 3 ML VIAL.NEB. NEB ONE ×2 (06:14→16:31)
[2023-09-12] MEDS ORDERED: LEVOTHYROXINE NA 88 MCG TABLET (FP) ONE (07:44)
[2023-09-12] MEDS: risperiDONE 1 MG TABLET PO SCH ×2 (07:52→23:02)
[2023-09-12] MEDS: PATIENT'S OWN MEDICATION (NON-FORMULARY) (Icosapent Ethyl [Vascepa] 1 GM Capsule) PO SCH (07:52)
[2023-09-12] MEDS: LEVOTHYROXINE NA 88 MCG TABLET (FP) PO SCH (07:52)
[2023-09-12] MEDS: INSULIN ASPART SLIDING SCALE (NOVOLOG) 1 VIAL SQ SCH ×4 (07:52→23:37)
[2023-09-12] MEDS ORDERED: ENOXAPARIN NA (PORCINE) 40 MG/0.4 ML DISP.SYRIN SQ SCH ×2 (10:00)
[2023-09-12] MEDS ORDERED: PATIENT'S OWN MEDICATION (NON-FORMULARY) (Empagliflozin 25 MG Tablet) PO SCH (10:00)
[2023-09-12] MEDS ORDERED: methylPREDNISolone NA SUCC 40 MG/1 ML VIAL ONE (10:59)
[2023-09-12] MEDS ORDERED: SERTRALINE HCL 50 MG TABLET (FP) ONE (10:59)
[2023-09-12] MEDS ORDERED: INSULIN (NOVOLOG MIX 70/30) 100 UNITS/ML MDV SQ ONE (11:03)
[2023-09-12] MEDS: DIVALPROEX SODIUM 500 MG TABLET E.C. PO SCH ×2 (11:15→23:02)
[2023-09-12] MEDS: FLUTICASONE PROP 0.05% 16 GM NASAL SPRAY NS SCH (11:15)
[2023-09-12] MEDS: FESOTERODINE FUMARATE PO SCH (11:15)
[2023-09-12] MEDS: LORATADINE 10 MG TABLET PO SCH (11:15)
[2023-09-12] MEDS: HALOPERIDOL 0.5 MG TABLET PO SCH (11:16)
[2023-09-12] MEDS: INSULIN GLARGINE HUM REC ANLOG SQ SCH (11:16)
[2023-09-12] MEDS: TOPIRAMATE 25 MG TABLET PO SCH ×2 (11:16→23:01)
[2023-09-12] MEDS: ENOXAPARIN NA (PORCINE) 40 MG/0.4 ML DISP.SYRIN SQ SCH ×2 (11:16→23:01)
[2023-09-12] MEDS: FENOFIBRIC ACID 135 MG CAP PO SCH (11:16)
[2023-09-12] MEDS: [UNRECOGNIZED DRUG - OTHER] SQ SCH (11:16)
[2023-09-12] MEDS: methylPREDNISolone NA SUCC 40 MG/1 ML VIAL IVPUSH SCH (11:16)
[2023-09-12] MEDS: SERTRALINE HCL 50 MG TABLET (FP) PO SCH (11:16)
[2023-09-12] MEDS: OMEGA-3 ACID ETHYL ESTERS (FATTY-ACIDS) 1 GM CAPSULE (FP) PO SCH ×2 (11:16→23:00)
[2023-09-12] MEDS ORDERED: PATIENT'S OWN MEDICATION (NON-FORMULARY) (Semaglutide [Ozempic] 1 MG/0.75 ML Pen.Injctr) SQ SCH (16:00)
[2023-09-12] MEDS ORDERED: REMDESIVIR 100 MG in SODIUM CHLORIDE 250 ML IVPB SCH (22:00)
[2023-09-12] MEDS: REMDESIVIR 100 MG in SODIUM CHLORIDE 250 ML IVPB SCH (22:59)
[2023-09-12] MEDS: ATORVASTATIN CA 40 MG TABLET (FP) PO SCH (23:01)
[2023-09-12] MEDS: DESMOPRESSIN ACETATE 0.2 MG TABLET PO SCH (23:03)
[2023-09-12] MEDS: LURASIDONE HCL 40 MG TABLET PO SCH (23:06)
[2023-09-13 02:39] VITALS: BMI 53.4
[2023-09-13] MEDS ORDERED: ALBUTEROL SO4 2.5/IPRATROPIUM 0.5 INH SOL 3 ML VIAL.NEB. NEB PRN (04:00)
[2023-09-13] MEDS ORDERED: INSULIN (NOVOLOG) ASPART 100 UNITS/ML 10ML VIAL ONE ×4 (06:53→21:47)
[2023-09-13] MEDS: risperiDONE 1 MG TABLET PO SCH ×2 (07:07→22:25)
[2023-09-13] MEDS: INSULIN ASPART SLIDING SCALE (NOVOLOG) 1 VIAL SQ SCH ×4 (07:07→22:37)
[2023-09-13] MEDS: LEVOTHYROXINE NA 88 MCG TABLET (FP) PO SCH (07:07)
[2023-09-13] MEDS: HALOPERIDOL 0.5 MG TABLET PO SCH (09:45)
[2023-09-13] MEDS: EMPAGLIFLOZIN (JARDIANCE) 25 MG TABLET PO SCH (09:45)
[2023-09-13] MEDS: SERTRALINE HCL 50 MG TABLET (FP) PO SCH (09:46)
[2023-09-13] MEDS: DIVALPROEX SODIUM 500 MG TABLET E.C. PO SCH ×2 (09:46→22:26)
[2023-09-13] MEDS: ENOXAPARIN NA (PORCINE) 40 MG/0.4 ML DISP.SYRIN SQ SCH ×2 (09:46→22:33)
[2023-09-13 09:49] LABS: BASO % 0.6 % (0-2.0); HEMATOCRIT 40.4 % (35.4-49); HEMOGLOBIN 13.6 GM/dL (11.7-16.9); LYMPH % 45.8 % (8-40); MCH 28.2 pg (25.7-33.7); MCHC 33.7 g/dl (32.0-35.9); MEAN CELL VOLUME 83.7 fl (80-96); MEAN PLT VOLUME 8.5 fl (7.5-11.1); MONO % 6.4 % (3.8-10.2); NEUT % 45.2 % (42.8-82.8); PLATELET COUNT 194 10^3/uL (134-434); POTASSIUM 3.9 mmol/L (3.5-5.1); RBC 4.83 M/mm3 (4.00-5.60); RDW 15.8 % (11.9-15.9); WHITE BLOOD COUNT 6.5 K/mm3 (4.0-10.0)
[2023-09-13] MEDS: methylPREDNISolone NA SUCC 40 MG/1 ML VIAL IVPUSH SCH ×2 (09:49→17:18)
[2023-09-13] MEDS: OMEGA-3 ACID ETHYL ESTERS (FATTY-ACIDS) 1 GM CAPSULE (FP) PO SCH ×2 (09:49→22:27)
[2023-09-13] MEDS: FENOFIBRIC ACID 135 MG CAP PO SCH (09:50)
[2023-09-13] MEDS: TOPIRAMATE 25 MG TABLET PO SCH ×2 (09:50→22:26)
[2023-09-13 10:20] LABS: ALBUMIN 3.2 g/dl (3.4-5.0)
[2023-09-13 10:21] LABS: BLOOD UREA NITROGEN 24.2 mg/dL (7-18)
[2023-09-13 10:24] LABS: CREATININE 0.8 mg/dL (0.55-1.3)
[2023-09-13 10:25] LABS: CALCIUM 8.9 mg/dL (8.5-10.1); TOT PROT 6.8 g/dl (6.4-8.2)
[2023-09-13 10:27] LABS: BILIRUBIN,TOTAL 0.3 mg/dL (0.2-1)
[2023-09-13] MEDS: FLUTICASONE PROP 0.05% 16 GM NASAL SPRAY NS SCH (11:01)
[2023-09-13] MEDS: LORATADINE 10 MG TABLET PO SCH (11:01)
[2023-09-13] MEDS: INSULIN GLARGINE HUM REC ANLOG SQ SCH ×2 (11:31→11:32)
[2023-09-13] MEDS: [UNRECOGNIZED DRUG - OTHER] SQ SCH ×2 (11:31→11:32)
[2023-09-13] MEDS: INSULIN (LEVEMIR) 100 UNITS/ML UNITS SQ SCH ×2 (11:36→22:33)
[2023-09-13] MEDS ORDERED: INSULIN (LEVEMIR) 100 UNITS/ML UNITS SQ ONE (11:40)
[2023-09-13] MEDS: FESOTERODINE FUMARATE PO SCH (12:01)
[2023-09-13] MEDS: ASPIRIN COATED 81 MG TABLET.EC PO SCH (14:32)
[2023-09-13] MEDS: LISINOPRIL 5 MG TABLET PO SCH (14:32)
[2023-09-13] MEDS: guaiFENesin/D-M SUGAR-FREE/ACLHOL-FREE 118 ML BOTTLE PO SCH ×2 (17:33→23:54)
[2023-09-13] MEDS: ATORVASTATIN CA 40 MG TABLET (FP) PO SCH (22:25)
[2023-09-13] MEDS: REMDESIVIR 100 MG in SODIUM CHLORIDE 250 ML IVPB SCH (22:30)
[2023-09-13] MEDS: LURASIDONE HCL 40 MG TABLET PO SCH (23:53)
[2023-09-13] MEDS: DESMOPRESSIN ACETATE 0.2 MG TABLET PO SCH (23:53)
[2023-09-14] MEDS: methylPREDNISolone NA SUCC 40 MG/1 ML VIAL IVPUSH SCH ×2 (02:33→12:11)
[2023-09-14] MEDS: guaiFENesin/D-M SUGAR-FREE/ACLHOL-FREE 118 ML BOTTLE PO SCH ×3 (06:44→17:41)
[2023-09-14] MEDS: INSULIN (LEVEMIR) 100 UNITS/ML UNITS SQ SCH ×2 (06:45→23:16)
[2023-09-14] MEDS: INSULIN ASPART SLIDING SCALE (NOVOLOG) 1 VIAL SQ SCH ×4 (06:48→23:09)
[2023-09-14] MEDS: risperiDONE 1 MG TABLET PO SCH ×2 (06:55→22:26)
[2023-09-14] MEDS: LEVOTHYROXINE NA 88 MCG TABLET (FP) PO SCH (06:55)
[2023-09-14] MEDS ORDERED: INSULIN (LEVEMIR) 100 UNITS/ML UNITS SQ ONE (08:36)
[2023-09-14] MEDS: FENOFIBRIC ACID 135 MG CAP PO SCH (11:02)
[2023-09-14] MEDS: ASPIRIN COATED 81 MG TABLET.EC PO SCH (11:02)
[2023-09-14] MEDS: DIVALPROEX SODIUM 500 MG TABLET E.C. PO SCH ×2 (11:02→22:22)
[2023-09-14] MEDS: OMEGA-3 ACID ETHYL ESTERS (FATTY-ACIDS) 1 GM CAPSULE (FP) PO SCH ×2 (11:02→22:23)
[2023-09-14] MEDS: LORATADINE 10 MG TABLET PO SCH (11:03)
[2023-09-14] MEDS: SERTRALINE HCL 50 MG TABLET (FP) PO SCH (11:03)
[2023-09-14] MEDS: TOPIRAMATE 25 MG TABLET PO SCH ×2 (11:03→22:31)
[2023-09-14] MEDS: LISINOPRIL 5 MG TABLET PO SCH (11:03)
[2023-09-14] MEDS: TOLTERODINE TARTRATE LA 4 MG CAP.SR.24H (FP) PO SCH (11:04)
[2023-09-14] MEDS: HALOPERIDOL 0.5 MG TABLET PO SCH (11:04)
[2023-09-14] MEDS: EMPAGLIFLOZIN (JARDIANCE) 25 MG TABLET PO SCH (11:04)
[2023-09-14] MEDS: predniSONE 20 MG TABLET (UD) PO SCH (11:35)
[2023-09-14] MEDS: ENOXAPARIN NA (PORCINE) 40 MG/0.4 ML DISP.SYRIN SQ SCH ×2 (11:36→22:21)
[2023-09-14] MEDS: FLUTICASONE PROP 0.05% 16 GM NASAL SPRAY NS SCH (11:41)
[2023-09-14] MEDS ORDERED: INSULIN (NOVOLOG) ASPART 100 UNITS/ML 10ML VIAL ONE ×3 (13:37→23:15)
[2023-09-14] MEDS: ATORVASTATIN CA 40 MG TABLET (FP) PO SCH (22:22)
[2023-09-14] MEDS: LURASIDONE HCL 40 MG TABLET PO SCH (22:23)
[2023-09-14] MEDS: REMDESIVIR 100 MG in SODIUM CHLORIDE 250 ML IVPB SCH (22:25)
[2023-09-14] MEDS: DESMOPRESSIN ACETATE 0.2 MG TABLET PO SCH (23:16)
[2023-09-15] MEDS: guaiFENesin/D-M SUGAR-FREE/ACLHOL-FREE 118 ML BOTTLE PO SCH ×4 (01:27→16:47)
[2023-09-15] MEDS ORDERED: INSULIN (NOVOLOG) ASPART 100 UNITS/ML 10ML VIAL ONE ×2 (06:33→22:02)
[2023-09-15] MEDS: INSULIN ASPART SLIDING SCALE (NOVOLOG) 1 VIAL SQ SCH ×4 (06:39→22:44)
[2023-09-15] MEDS: risperiDONE 1 MG TABLET PO SCH ×2 (06:39→21:58)
[2023-09-15] MEDS: INSULIN (LEVEMIR) 100 UNITS/ML UNITS SQ SCH ×2 (06:51→22:44)
[2023-09-15] MEDS: LEVOTHYROXINE NA 88 MCG TABLET (FP) PO SCH (06:52)
[2023-09-15] MEDS ORDERED: SODIUM CHLORIDE 0.9% 1000 ML INFUS.BAG IV ONE (08:40)
[2023-09-15] MEDS: EMPAGLIFLOZIN (JARDIANCE) 25 MG TABLET PO SCH (09:54)
[2023-09-15] MEDS: FENOFIBRIC ACID 135 MG CAP PO SCH (09:54)
[2023-09-15] MEDS: LORATADINE 10 MG TABLET PO SCH (09:55)
[2023-09-15] MEDS: OMEGA-3 ACID ETHYL ESTERS (FATTY-ACIDS) 1 GM CAPSULE (FP) PO SCH ×2 (09:55→21:59)
[2023-09-15] MEDS: TOLTERODINE TARTRATE LA 4 MG CAP.SR.24H (FP) PO SCH (09:55)
[2023-09-15] MEDS: SERTRALINE HCL 50 MG TABLET (FP) PO SCH (09:56)
[2023-09-15] MEDS: ASPIRIN COATED 81 MG TABLET.EC PO SCH (09:57)
[2023-09-15] MEDS: HALOPERIDOL 0.5 MG TABLET PO SCH (09:57)
[2023-09-15] MEDS: ENOXAPARIN NA (PORCINE) 40 MG/0.4 ML DISP.SYRIN SQ SCH ×2 (09:57→21:55)
[2023-09-15] MEDS: predniSONE 20 MG TABLET (UD) PO SCH (10:00)
[2023-09-15] MEDS: DIVALPROEX SODIUM 500 MG TABLET E.C. PO SCH ×2 (10:01→21:55)
[2023-09-15] MEDS: LISINOPRIL 5 MG TABLET PO SCH (10:01)
[2023-09-15] MEDS: FLUTICASONE PROP 0.05% 16 GM NASAL SPRAY NS SCH (10:07)
[2023-09-15] MEDS: TOPIRAMATE 25 MG TABLET PO SCH ×2 (10:07→22:44)
[2023-09-15] MEDS: REMDESIVIR 100 MG in SODIUM CHLORIDE 250 ML IVPB SCH (21:55)
[2023-09-15] MEDS: LURASIDONE HCL 40 MG TABLET PO SCH (21:55)
[2023-09-15] MEDS: ATORVASTATIN CA 40 MG TABLET (FP) PO SCH (21:55)
[2023-09-15] MEDS: DESMOPRESSIN ACETATE 0.2 MG TABLET PO SCH (21:56)
[2023-09-16] MEDS: guaiFENesin/D-M SUGAR-FREE/ACLHOL-FREE 118 ML BOTTLE PO SCH ×3 (04:37→11:57)
[2023-09-16] MEDS ORDERED: INSULIN (NOVOLOG) ASPART 100 UNITS/ML 10ML VIAL ONE ×2 (05:15→11:53)
[2023-09-16] MEDS: INSULIN ASPART SLIDING SCALE (NOVOLOG) 1 VIAL SQ SCH ×2 (06:27→11:56)
[2023-09-16] MEDS: LEVOTHYROXINE NA 88 MCG TABLET (FP) PO SCH (06:28)
[2023-09-16] MEDS: INSULIN (LEVEMIR) 100 UNITS/ML UNITS SQ SCH (06:29)
[2023-09-16] MEDS: risperiDONE 1 MG TABLET PO SCH (06:29)
[2023-09-16 06:45] VITALS: TEMP 97.6
[2023-09-16] MEDS: OMEGA-3 ACID ETHYL ESTERS (FATTY-ACIDS) 1 GM CAPSULE (FP) PO SCH (11:31)
[2023-09-16] MEDS: predniSONE 20 MG TABLET (UD) PO SCH (11:32)
[2023-09-16] MEDS: LORATADINE 10 MG TABLET PO SCH (11:32)
[2023-09-16] MEDS: FENOFIBRIC ACID 135 MG CAP PO SCH (11:32)
[2023-09-16] MEDS: DIVALPROEX SODIUM 500 MG TABLET E.C. PO SCH (11:32)
[2023-09-16] MEDS: SERTRALINE HCL 50 MG TABLET (FP) PO SCH (11:32)
[2023-09-16] MEDS: TOLTERODINE TARTRATE LA 4 MG CAP.SR.24H (FP) PO SCH (11:33)
[2023-09-16] MEDS: TOPIRAMATE 25 MG TABLET PO SCH (11:33)
[2023-09-16] MEDS: ASPIRIN COATED 81 MG TABLET.EC PO SCH (11:33)
[2023-09-16] MEDS: LISINOPRIL 5 MG TABLET PO SCH (11:33)
[2023-09-16] MEDS: EMPAGLIFLOZIN (JARDIANCE) 25 MG TABLET PO SCH (11:34)
[2023-09-16] MEDS: ENOXAPARIN NA (PORCINE) 40 MG/0.4 ML DISP.SYRIN SQ SCH (11:34)
[2023-09-16] MEDS: HALOPERIDOL 0.5 MG TABLET PO SCH (11:34)
[2023-09-16] MEDS: FLUTICASONE PROP 0.05% 16 GM NASAL SPRAY NS SCH (11:39)
[2023-09-16] MEDS: PATIENT'S OWN MEDICATION (NON-FORMULARY) (Icosapent Ethyl [Vascepa] 1 GM Capsule) PO SCH ×2 (11:58→11:59)
[2023-09-16 13:00] VITALS: BP 146/92; PULSE 100; RESP 20
== END 2023-09-16 13:09 | disposition home or self-care (01) ==
LOC: JER 10:13 → INTOOBSV 18:28 → JERBED 18:28 → J8W 09-12 19:51
PROVIDERS: ADMIT Internal Medicine; ATTEND Nurse Practitioner Family
PROC: 3E0F7GC Introduction of Other Therapeutic Substance into Respiratory Tract, Via Natural or Artificial Opening (ICD-10-PCS; principal; 2023-09-11)
PROC: 3E033NZ Introduction of Analgesics, Hypnotics, Sedatives into Peripheral Vein, Percutaneous Approach (ICD-10-PCS; 2023-09-11)
PROC: 3E013VG Introduction of Insulin into Subcutaneous Tissue, Percutaneous Approach (ICD-10-PCS; 2023-09-11)
PROC: 3E0337Z Introduction of Electrolytic and Water Balance Substance into Peripheral Vein, Percutaneous Approach (ICD-10-PCS; 2023-09-11)
PROC: 3E033GC Introduction of Other Therapeutic Substance into Peripheral Vein, Percutaneous Approach (ICD-10-PCS; 2023-09-11)
DX: U07.1 COVID-19 (principal); R07.89 Other chest pain; E11.9 Type 2 diabetes mellitus without complications; F99 Mental disorder, not otherwise specified; I25.10 Atherosclerotic heart disease of native coronary artery without angina pectoris; E78.5 Hyperlipidemia, unspecified; I25.2 Old myocardial infarction; Z95.5 Presence of coronary angioplasty implant and graft; R62.50 Unspecified lack of expected normal physiological development in childhood; I11.0 Hypertensive heart disease with heart failure; Z79.01 Long term (current) use of anticoagulants; Z87.891 Personal history of nicotine dependence; R63.4 Abnormal weight loss; Z29.89 Encounter for other specified prophylactic measures; E66.01 Morbid (severe) obesity due to excess calories; Z68.43 Body mass index [BMI] 50.0-59.9, adult; Z88.8 Allergy status to other drugs, medicaments and biological substances; E03.9 Hypothyroidism, unspecified
CPT/HCPCS: 0241U-QW; 36415; 71046-TC-FY; 71275-TC; 80053; 82962; 84484; 85025; 86140; 93005; 93010; 94640; 96361; 96365; 96366; 96372; 96375; 99285-25; G0378; J0248; Q9967

== ENCOUNTER 2023-10-17 21:25 | Observation (INO) | payer OTHER ==
[2023-10-17 22:41] LABS: BASO % 1.2 % (0-2.0); EOS % 1.1 % (0-4.5); HEMATOCRIT 42.3 % (35.4-49); HEMOGLOBIN 14.6 GM/dL (11.7-16.9); MCH 28.6 pg (25.7-33.7); MCHC 34.4 g/dl (32.0-35.9); MEAN CELL VOLUME 83.1 fl (80-96); MEAN PLT VOLUME 8.3 fl (7.5-11.1); NEUT % 51.7 % (42.8-82.8); PLATELET COUNT 265 10^3/uL (134-434); RBC 5.09 M/mm3 (4.00-5.60); RDW 16.7 % (11.9-15.9); WHITE BLOOD COUNT 8.6 K/mm3 (4.0-10.0)
[2023-10-17 22:42] LABS: INR 0.95 (0.83-1.09)
[2023-10-17 22:45] LABS: ACTIVATED PTT 30.4 SECONDS (25.2-36.5)
[2023-10-17 22:50] LABS: POTASSIUM 3.9 mmol/L (3.5-5.1)
[2023-10-17 22:52] LABS: CALCIUM 8.6 mg/dL (8.5-10.1)
[2023-10-17 22:53] LABS: ALBUMIN 3.3 g/dl (3.4-5.0)
[2023-10-17 22:57] LABS: BILIRUBIN,TOTAL 0.4 mg/dL (0.2-1)
[2023-10-17 23:05] LABS: BLOOD UREA NITROGEN 17.8 mg/dL (7-18)
[2023-10-18] MEDS ORDERED: ACETAMINOPHEN 325 MG TABLET (FP) PO PRN (00:40)
[2023-10-18] MEDS: KETOROLAC TROMETHAMINE 15 MG/ML VIAL IM ONE (01:12)
[2023-10-18] MEDS ORDERED: KETOROLAC TROMETHAMINE 15 MG/ML VIAL ONE (01:13)
[2023-10-18] MEDS: INSULIN ASPART SLIDING SCALE (NOVOLOG) 1 VIAL SQ SCH (06:33)
[2023-10-18 08:12] LABS: BASO % 0.7 % (0-2.0); HEMATOCRIT 41.8 % (35.4-49); HEMOGLOBIN 14.2 GM/dL (11.7-16.9); LYMPH % 44.2 % (8-40); MCH 28.4 pg (25.7-33.7); MEAN CELL VOLUME 83.5 fl (80-96); MEAN PLT VOLUME 8.6 fl (7.5-11.1); MONO % 6.9 % (3.8-10.2); NEUT % 47.2 % (42.8-82.8); PLATELET COUNT 208 10^3/uL (134-434); RBC 5.01 M/mm3 (4.00-5.60); RDW 16.2 % (11.9-15.9); WHITE BLOOD COUNT 6.9 K/mm3 (4.0-10.0)
[2023-10-18 09:01] LABS: BLOOD UREA NITROGEN 20.9 mg/dL (7-18); CALCIUM 9.7 mg/dL (8.5-10.1); MAGNESIUM 2.2 mg/dL (1.8-2.4)
[2023-10-18 09:04] LABS: CREATININE 0.9 mg/dL (0.55-1.3); PHOSPHOROUS 5.7 mg/dL (2.5-4.9)
[2023-10-18] MEDS: PANTOPRAZOLE 40 MG TABLET PO SCH (11:43)
[2023-10-18] MEDS: REMDESIVIR 200 MG in SODIUM CHLORIDE 250 ML IVPB ONE (12:43)
[2023-10-18] MEDS ORDERED: PATIENT'S OWN MEDICATION (NON-FORMULARY) (Sertraline Hcl [Zoloft] 100 MG Tablet) PO SCH (16:30)
[2023-10-18] MEDS: DIVALPROEX SODIUM 500 MG TABLET E.C. PO SCH ×2 (16:58→21:31)
[2023-10-18] MEDS: metoPROLOL SUCCINATE 25 MG TAB.SR.24H (FP) PO SCH (16:58)
[2023-10-18] MEDS: LORATADINE 10 MG TABLET PO SCH (16:58)
[2023-10-18] MEDS: LISINOPRIL 5 MG TABLET PO SCH (16:58)
[2023-10-18] MEDS: ASPIRIN COATED 81 MG TABLET.EC PO SCH (16:58)
[2023-10-18] MEDS: ATORVASTATIN CA 40 MG TABLET (FP) PO SCH (21:24)
[2023-10-18] MEDS: LURASIDONE HCL 40 MG TABLET PO SCH (21:24)
[2023-10-18] MEDS: risperiDONE 1 MG TABLET PO SCH (21:25)
[2023-10-18] MEDS: TOPIRAMATE 100 MG TABLET PO SCH (21:26)
[2023-10-18] MEDS ORDERED: risperiDONE 3 MG TABLET PO SCH (22:00)
[2023-10-18] MEDS ORDERED: PATIENT'S OWN MEDICATION (NON-FORMULARY) (Topiramate [Topiramate] 50 MG Tablet) PO SCH (22:00)
[2023-10-18] MEDS ORDERED: RISPERIDONE 3 MG PO SCH (22:00)
[2023-10-18 23:03] VITALS: BMI 43.1
[2023-10-19] MEDS: LEVOTHYROXINE NA 88 MCG TABLET (FP) PO SCH (06:28)
[2023-10-19] MEDS: EMPAGLIFLOZIN (JARDIANCE) 25 MG TABLET PO SCH (06:29)
[2023-10-19] MEDS: risperiDONE 1 MG TABLET PO SCH (06:29)
[2023-10-19 08:32] LABS: BASO % 0.5 % (0-2.0); EOS % 1.7 % (0-4.5); HEMATOCRIT 42.2 % (35.4-49); HEMOGLOBIN 14.3 GM/dL (11.7-16.9); LYMPH % 35.1 % (8-40); MCH 28.2 pg (25.7-33.7); MCHC 33.9 g/dl (32.0-35.9); MEAN CELL VOLUME 83.4 fl (80-96); MEAN PLT VOLUME 8.7 fl (7.5-11.1); MONO % 7.3 % (3.8-10.2); NEUT % 55.4 % (42.8-82.8); PLATELET COUNT 210 10^3/uL (134-434); RBC 5.06 M/mm3 (4.00-5.60); RDW 16.4 % (11.9-15.9); WHITE BLOOD COUNT 7.5 K/mm3 (4.0-10.0)
[2023-10-19 09:00] LABS: POTASSIUM 3.9 mmol/L (3.5-5.1)
[2023-10-19 09:02] LABS: ALBUMIN 3.4 g/dl (3.4-5.0); BLOOD UREA NITROGEN 19.2 mg/dL (7-18); CALCIUM 8.9 mg/dL (8.5-10.1)
[2023-10-19 09:06] LABS: BILIRUBIN,TOTAL 0.4 mg/dL (0.2-1); CREATININE 0.8 mg/dL (0.55-1.3); TOT PROT 7.1 g/dl (6.4-8.2)
[2023-10-19 09:09] LABS: N-TERMINAL BNP 45.4 pg/ml (5-125)
[2023-10-19] MEDS ORDERED: PATIENT'S OWN MEDICATION (NON-FORMULARY) (Fenofibrate Nanocrystallized [Fenofibrate] 145 M PO SCH (10:00)
[2023-10-19] MEDS: SERTRALINE HCL 50 MG TABLET (FP) PO SCH (10:15)
[2023-10-19] MEDS: FENOFIBRIC ACID 135 MG CAP PO SCH (10:17)
[2023-10-19] MEDS: TOLTERODINE TARTRATE LA 4 MG CAP.SR.24H (FP) PO SCH (10:18)
[2023-10-19] MEDS: POLYETHYLENE GLYCOL 3350 255 GM BTL PO SCH (11:27)
[2023-10-19] MEDS: REMDESIVIR 100 MG in SODIUM CHLORIDE 250 ML IVPB SCH (12:49)
[2023-10-21 12:56] VITALS: RESP 18
[2023-10-21 14:03] VITALS: BP 124/77; PULSE 94; TEMP 98.3
== END 2023-10-21 13:25 | disposition home or self-care (01) ==
LOC: JER 21:25 → JERBED 23:15 → J4S 10-18 03:05
PROVIDERS: ADMIT Internal Medicine; ATTEND Internal Medicine
PROC: 3E013VG Introduction of Insulin into Subcutaneous Tissue, Percutaneous Approach (ICD-10-PCS; principal; 2023-10-17)
PROC: 3E0333Z Introduction of Anti-inflammatory into Peripheral Vein, Percutaneous Approach (ICD-10-PCS; 2023-10-17)
PROC: 3E033GC Introduction of Other Therapeutic Substance into Peripheral Vein, Percutaneous Approach (ICD-10-PCS; 2023-10-17)
DX: U07.1 COVID-19 (principal); R07.89 Other chest pain; E78.5 Hyperlipidemia, unspecified; E11.9 Type 2 diabetes mellitus without complications; R62.50 Unspecified lack of expected normal physiological development in childhood; F84.0 Autistic disorder; E03.9 Hypothyroidism, unspecified; R06.09 Other forms of dyspnea; I25.10 Atherosclerotic heart disease of native coronary artery without angina pectoris; I11.0 Hypertensive heart disease with heart failure; I25.2 Old myocardial infarction; R05.9 Cough, unspecified; Z95.5 Presence of coronary angioplasty implant and graft; E66.01 Morbid (severe) obesity due to excess calories; Z68.41 Body mass index [BMI] 40.0-44.9, adult; Z87.891 Personal history of nicotine dependence
CPT/HCPCS: 0241U-QW; 36415; 71045-TC-FY; 80048; 80053; 80061; 82962; 83036; 83735; 83880; 84100; 84439; 84443; 84484; 85025; 85379; 85610; 85651; 85730; 86140; 93005; 93010; 96365; 96366; 96372; 99285-25; G0378; J0248

== ENCOUNTER 2024-03-17 16:36 | Emergency (ER) | payer OTHER ==
[2024-03-17 16:49] VITALS: BP 117/61; TEMP 98.1; BMI 49.9
[2024-03-17] MEDS ORDERED: LIDOCAINE 4% PATCH TP ONE (17:31)
[2024-03-17] MEDS ORDERED: ACETAMINOPHEN 500 MG TABLET (FP) ONE (17:31)
[2024-03-17] MEDS ORDERED: KETOROLAC TROMETHAMINE 15 MG/ML VIAL ONE (17:31)
[2024-03-17] MEDS: KETOROLAC TROMETHAMINE 15 MG/ML VIAL IM ONE (17:37)
[2024-03-17] MEDS: ACETAMINOPHEN 500 MG TABLET (FP) PO ONE (17:38)
[2024-03-17] MEDS: LIDOCAINE 4% PATCH TP ONE (17:39)
[2024-03-17 19:04] VITALS: PULSE 100; RESP 18
[2024-03-17] MEDS ORDERED: LIDOCAINE PATCH REMOVAL MC SCH (22:00)
== END 2024-03-17 19:20 | disposition home or self-care (01) ==
LOC: JERFT 16:36 → JER 16:36 → JERFT 19:20
PROC: 3E0133Z Introduction of Anti-inflammatory into Subcutaneous Tissue, Percutaneous Approach (ICD-10-PCS; principal; 2024-03-17)
DX: M79.662 Pain in left lower leg (principal); M25.561 Pain in right knee; M54.42 Lumbago with sciatica, left side
CPT/HCPCS: 72100-TC-FY; 73562-TC-LT-FY; 93971-TC; 96372; 99284-25

== ENCOUNTER 2024-05-07 10:07 | Observation (INO) | payer OTHER ==
[2024-05-07 10:32] VITALS: BMI 51.1
[2024-05-07] MEDS: ACETAMINOPHEN 1000 MG/100 ML BAG IVPB ONE (12:30)
[2024-05-07] MEDS ORDERED: METOCLOPRAMIDE HCL INJECTION 10 MG/2 ML VIAL ONE (12:34)
[2024-05-07] MEDS ORDERED: ACETAMINOPHEN INJECTION 100 ML ONE (12:34)
[2024-05-07] MEDS: SODIUM CHLORIDE 0.9% 500 ML INFUS.BAG IV ONE (12:35)
[2024-05-07 12:44] LABS: BASO % 0.7 % (0-2.0); EOS % 0.8 % (0-4.5); HEMATOCRIT 43.4 % (35.4-49); HEMOGLOBIN 14.7 GM/dL (11.7-16.9); INR 0.94 (0.83-1.09); LYMPH % 29.9 % (8-40); MCH 28.3 pg (25.7-33.7); MCHC 33.7 g/dl (32.0-35.9); MEAN CELL VOLUME 83.9 fl (80-96); MEAN PLT VOLUME 8.4 fl (7.5-11.1); MONO % 6.6 % (3.8-10.2); PLATELET COUNT 207 10^3/uL (134-434); PROTHROMBIN TIME (PATIENT) 10.8 SEC (9.7-13.0); RBC 5.18 M/mm3 (4.00-5.60); WHITE BLOOD COUNT 8.7 K/mm3 (4.0-10.0)
[2024-05-07 12:47] LABS: ACTIVATED PTT 32.2 SECONDS (25.2-36.5)
[2024-05-07 12:59] LABS: POTASSIUM 5.5 mmol/L (3.5-5.1)
[2024-05-07 13:01] LABS: ALBUMIN 3.5 g/dl (3.4-5.0); CALCIUM 8.9 mg/dL (8.5-10.1)
[2024-05-07 13:03] LABS: MAGNESIUM 2.4 mg/dL (1.8-2.4)
[2024-05-07 13:06] LABS: BILIRUBIN,TOTAL 0.4 mg/dL (0.2-1); TOT PROT 7.7 g/dl (6.4-8.2)
[2024-05-07] MEDS: METOCLOPRAMIDE HCL INJECTION 10 MG/2 ML VIAL IVPUSH ONE (13:08)
[2024-05-07 14:41] LABS: CALCIUM 8.2 mg/dL (8.5-10.1)
[2024-05-07 14:42] LABS: BLOOD UREA NITROGEN 16.5 mg/dL (7-18)
[2024-05-07 14:45] LABS: CREATININE 0.8 mg/dL (0.55-1.3)
[2024-05-07] MEDS ORDERED: PATIENT'S OWN MEDICATION (NON-FORMULARY) (Topiramate [Topiramate] 50 MG Tablet) PO SCH (22:00)
[2024-05-07] MEDS: SODIUM CHLORIDE 1,000 ML IV SCH (22:18)
[2024-05-07] MEDS: DIVALPROEX SODIUM 500 MG TABLET E.C. PO SCH (22:53)
[2024-05-07] MEDS: TOPIRAMATE 100 MG, TOPIRAMATE 50 MG PO SCH (22:54)
[2024-05-07] MEDS: LURASIDONE HCL 40 MG TABLET PO SCH (22:55)
[2024-05-07] MEDS: ATORVASTATIN CA 40 MG TABLET (FP) PO SCH (22:55)
[2024-05-08] MEDS: risperiDONE 1 MG TABLET PO SCH (06:03)
[2024-05-08] MEDS: LEVOTHYROXINE NA 88 MCG TABLET (FP) PO SCH (06:03)
[2024-05-08] MEDS: EMPAGLIFLOZIN (JARDIANCE) 25 MG TABLET PO SCH (06:34)
[2024-05-08 08:43] LABS: BASO % 0.5 % (0-2.0); EOS % 1.3 % (0-4.5); HEMATOCRIT 40.8 % (35.4-49); HEMOGLOBIN 13.8 GM/dL (11.7-16.9); LYMPH % 27.6 % (8-40); MCH 28.6 pg (25.7-33.7); MCHC 33.9 g/dl (32.0-35.9); MEAN CELL VOLUME 84.3 fl (80-96); MEAN PLT VOLUME 8.7 fl (7.5-11.1); MONO % 5.6 % (3.8-10.2); PLATELET COUNT 209 10^3/uL (134-434); RBC 4.84 M/mm3 (4.00-5.60); WHITE BLOOD COUNT 8.4 K/mm3 (4.0-10.0)
[2024-05-08 08:59] LABS: POTASSIUM 4.3 mmol/L (3.5-5.1)
[2024-05-08 09:10] LABS: ALBUMIN 3.5 g/dl (3.4-5.0)
[2024-05-08 09:13] LABS: CREATININE 0.8 mg/dL (0.55-1.3)
[2024-05-08 09:15] LABS: BILIRUBIN,TOTAL 0.4 mg/dL (0.2-1); TOT PROT 6.8 g/dl (6.4-8.2)
[2024-05-08] MEDS: ENOXAPARIN NA (PORCINE) 40 MG/0.4 ML DISP.SYRIN SQ SCH (09:53)
[2024-05-08] MEDS: LISINOPRIL 5 MG TABLET PO SCH (09:54)
[2024-05-08] MEDS: ASPIRIN COATED 81 MG TABLET.EC PO SCH (09:54)
[2024-05-08] MEDS: metoPROLOL SUCCINATE 25 MG TAB.SR.24H (FP) PO SCH (09:54)
[2024-05-08] MEDS: SERTRALINE HCL 50 MG TABLET (FP) PO SCH (09:55)
[2024-05-08] MEDS: DIVALPROEX SODIUM 500 MG TABLET E.C. PO SCH (09:55)
[2024-05-08] MEDS: FENOFIBRIC ACID 135 MG CAP PO SCH (09:56)
[2024-05-08] MEDS: HALOPERIDOL 0.5 MG TABLET PO SCH (09:56)
[2024-05-08] MEDS ORDERED: POLYETHYLENE GLYCOL 3350 255 GM BTL PO SCH (10:00)
[2024-05-08] MEDS: POLYETHYLENE GLYCOL (HEALTHYLAX) 3350 17 GM PACKET PO SCH (11:00)
[2024-05-09 10:05] LABS: POTASSIUM 4.3 mmol/L (3.5-5.1)
[2024-05-09 10:38] LABS: ALBUMIN 3.6 g/dl (3.4-5.0); BLOOD UREA NITROGEN 16.4 mg/dL (7-18); CALCIUM 8.9 mg/dL (8.5-10.1)
[2024-05-09] MEDS: metoPROLOL SUCCINATE 25 MG TAB.SR.24H (FP) PO SCH (10:39)
[2024-05-09 10:42] LABS: CREATININE 0.9 mg/dL (0.55-1.3)
[2024-05-09 10:43] LABS: BILIRUBIN,TOTAL 0.6 mg/dL (0.2-1); TOT PROT 7.3 g/dl (6.4-8.2)
[2024-05-10 01:57] VITALS: RESP 18
[2024-05-10 09:39] VITALS: BP 115/91; PULSE 102; TEMP 97.9
== END 2024-05-10 14:36 | disposition home or self-care (01) ==
LOC: JER 10:07 → JERBED 15:28 → OBSVTOIN 15:28 → INTOOBSV 15:28 → UNDOADMOB 15:28 → JERBED 19:08 → J4W 19:08 → JERBED 05-08 15:56 → J4W 05-08 15:56
PROVIDERS: ADMIT Internal Medicine; ATTEND Internal Medicine
PROC: 3E033NZ Introduction of Analgesics, Hypnotics, Sedatives into Peripheral Vein, Percutaneous Approach (ICD-10-PCS; principal; 2024-05-08)
PROC: 3E023GC Introduction of Other Therapeutic Substance into Muscle, Percutaneous Approach (ICD-10-PCS; 2024-05-08)
PROC: 3E033GC Introduction of Other Therapeutic Substance into Peripheral Vein, Percutaneous Approach (ICD-10-PCS; 2024-05-08)
PROC: 3E0337Z Introduction of Electrolytic and Water Balance Substance into Peripheral Vein, Percutaneous Approach (ICD-10-PCS; 2024-05-08)
DX: I25.10 Atherosclerotic heart disease of native coronary artery without angina pectoris (principal); I11.0 Hypertensive heart disease with heart failure; E78.5 Hyperlipidemia, unspecified; F84.0 Autistic disorder; E11.9 Type 2 diabetes mellitus without complications; F79 Unspecified intellectual disabilities; R62.50 Unspecified lack of expected normal physiological development in childhood; E03.9 Hypothyroidism, unspecified; E66.01 Morbid (severe) obesity due to excess calories; Z72.0 Tobacco use; Z79.4 Long term (current) use of insulin
CPT/HCPCS: 36415; 70450-TC; 71045-TC-FY; 72125-TC; 80048; 80053; 82962; 83036; 83735; 84484; 85025; 85379; 85610; 85730; 93005; 93010; 93306-TC; 96361; 96372; 96374; 96375; 99285-25; G0378; J0131

== ENCOUNTER 2024-09-11 10:55 | Emergency (ER) | payer OTHER ==
[2024-09-11 11:24] VITALS: BP 129/83; RESP 20; TEMP 98.2; BMI 47.6
[2024-09-11] MEDS ORDERED: ONDANSETRON 4 MG/2 ML VIAL ONE (12:15)
[2024-09-11] MEDS: ONDANSETRON 4 MG/2 ML VIAL IVPUSH ONE (12:17)
[2024-09-11 12:23] LABS: BASO % 0.3 % (0-2.0); EOS % 0.8 % (0-4.5); HEMATOCRIT 45.1 % (35.4-49); HEMOGLOBIN 14.9 GM/dL (11.7-16.9); LYMPH % 6.6 % (8-40); MCH 27.2 pg (25.7-33.7); MCHC 33.1 g/dl (32.0-35.9); MEAN CELL VOLUME 82.2 fl (80-96); MEAN PLT VOLUME 8.9 fl (7.5-11.1); MONO % 3.5 % (3.8-10.2); NEUT % 88.8 % (42.8-82.8); PLATELET COUNT 232 10^3/uL (134-434); RBC 5.48 M/mm3 (4.00-5.60); RDW 16.1 % (11.9-15.9); WHITE BLOOD COUNT 11.3 K/mm3 (4.0-10.0)
[2024-09-11] MEDS ORDERED: ACETAMINOPHEN INJECTION 100 ML ONE (12:36)
[2024-09-11] MEDS ORDERED: MAG HYDROX/AL HYDROX/SIMETH 30 ML UNIT-DOSE CUP ONE (12:36)
[2024-09-11] MEDS ORDERED: FAMOTIDINE 20 MG/50 ML IVPB 20 MG/50 ML MG IVPB ONE (12:36)
[2024-09-11 12:42] LABS: POTASSIUM 5.4 mmol/L (3.5-5.1)
[2024-09-11] MEDS: FAMOTIDINE 20 MG/50 ML IVPB 20 MG/50 ML MG IVPB ONE (12:42)
[2024-09-11] MEDS: ACETAMINOPHEN 1000 MG/100 ML BAG IVPB ONE (12:42)
[2024-09-11] MEDS: MAG HYDROX/AL HYDROX/SIMETH 30 ML UNIT-DOSE CUP PO ONE (12:42)
[2024-09-11 12:45] LABS: ALBUMIN 3.8 g/dl (3.4-5.0); BLOOD UREA NITROGEN 16.7 mg/dL (7-18); CALCIUM 8.7 mg/dL (8.5-10.1)
[2024-09-11 12:50] LABS: BILIRUBIN,TOTAL 0.7 mg/dL (0.2-1); TOT PROT 7.7 g/dl (6.4-8.2)
[2024-09-11 14:04] VITALS: PULSE 110
== END 2024-09-11 14:05 | disposition home or self-care (01) ==
LOC: JER 10:55
PROC: 3E033GC Introduction of Other Therapeutic Substance into Peripheral Vein, Percutaneous Approach (ICD-10-PCS; principal; 2024-09-11)
PROC: 3E033NZ Introduction of Analgesics, Hypnotics, Sedatives into Peripheral Vein, Percutaneous Approach (ICD-10-PCS; 2024-09-11)
PROC: 3E033GC Introduction of Other Therapeutic Substance into Peripheral Vein, Percutaneous Approach (ICD-10-PCS; 2024-09-11)
DX: R11.2 Nausea with vomiting, unspecified (principal); R10.84 Generalized abdominal pain; R19.7 Diarrhea, unspecified; B34.9 Viral infection, unspecified; Z20.822 Contact with and (suspected) exposure to COVID-19
CPT/HCPCS: 0241U-QW; 36415; 71046-TC-FY; 80053; 83735; 84484; 85025; 87252; 93005; 93010; 96365; 96375; 99285-25; J0131

== ENCOUNTER 2024-10-02 21:16 | Emergency (ER) | payer OTHER ==
[2024-10-02 21:24] VITALS: TEMP 98.6; BMI 47.4
[2024-10-02] MEDS ORDERED: ACETAMINOPHEN INJECTION 100 ML ONE (23:00)
[2024-10-02] MEDS: ACETAMINOPHEN 1000 MG/100 ML BAG IVPB ONE (23:04)
[2024-10-02 23:34] LABS: BASO % 0.4 % (0-2.0); HEMATOCRIT 41.3 % (35.4-49); HEMOGLOBIN 13.8 GM/dL (11.7-16.9); LYMPH % 35.5 % (8-40); MCH 27.2 pg (25.7-33.7); MCHC 33.4 g/dl (32.0-35.9); MEAN CELL VOLUME 81.4 fl (80-96); MEAN PLT VOLUME 8.5 fl (7.5-11.1); MONO % 5.1 % (3.8-10.2); PLATELET COUNT 196 10^3/uL (134-434); RBC 5.08 M/mm3 (4.00-5.60); WHITE BLOOD COUNT 10.2 K/mm3 (4.0-10.0)
[2024-10-02 23:41] LABS: INR 1.01 (0.83-1.09); PROTHROMBIN TIME (PATIENT) 11.4 SEC (9.7-13.0)
[2024-10-02 23:43] LABS: ACTIVATED PTT 34.2 SECONDS (25.2-36.5)
[2024-10-02 23:52] LABS: POTASSIUM 3.5 mmol/L (3.5-5.1)
[2024-10-02 23:54] LABS: ALBUMIN 3.8 g/dl (3.4-5.0); BLOOD UREA NITROGEN 13.3 mg/dL (7-18); MAGNESIUM 1.8 mg/dL (1.8-2.4)
[2024-10-02 23:57] LABS: CREATININE 0.8 mg/dL (0.55-1.3)
[2024-10-02 23:59] LABS: BILIRUBIN,TOTAL 0.4 mg/dL (0.2-1); TOT PROT 7.2 g/dl (6.4-8.2)
[2024-10-03 00:41] VITALS: BP 115/71
[2024-10-03 00:50] LABS: HIV INTERPRETATION NEGATIVE (NEGATIVE)
[2024-10-03 04:43] VITALS: PULSE 97; RESP 15
== END 2024-10-03 05:35 | disposition home or self-care (01) ==
LOC: JER 21:16
PROC: 3E033NZ Introduction of Analgesics, Hypnotics, Sedatives into Peripheral Vein, Percutaneous Approach (ICD-10-PCS; principal; 2024-10-02)
DX: R07.9 Chest pain, unspecified (principal); R00.0 Tachycardia, unspecified; R00.2 Palpitations; R06.02 Shortness of breath; R11.0 Nausea; R05.9 Cough, unspecified; Z20.822 Contact with and (suspected) exposure to COVID-19
CPT/HCPCS: 0241U-QW; 36415; 71045-TC-FY; 71275-TC; 80053; 83735; 84484; 85025; 85379; 85610; 85730; 86803; 86850; 86900; 86901; 87389; 93005; 93010; 96374; 99285-25; J0131; Q9967